=== PATIENT | male | born 1950 | race Caucasian/White ===

== ENCOUNTER → 2017-04-28 | Outpatient (CLI) | payer MEDICARE, MEDICAID ==
[2017-04-28 12:55] LABS: MEAN CORPUSCULAR HEMOGLOBIN 31.9 pg (27.0-33.0); MEAN CORPUSCULAR HGB CONC 34.3 g/dl (32.0-36.5); RED CELL DISTRIBUTION WIDTH 13.7 % (11.5-14.5); WHITE BLOOD COUNT 5.1 K/mm3 (4.0-10.0)
[2017-04-28 14:49] LABS: ALBUMIN 3.5 GM/DL (3.2-5.2); ALBUMIN/GLOBULIN RATIO 0.95 (1.00-1.93); ALKALINE PHOSPHATASE 65 U/L (45-117); ALT/SGPT 24 U/L (12-78); ANION GAP 5 MEQ/L (8-16); AST/SGOT 12 U/L (15-37); BILIRUBIN,TOTAL 0.5 MG/DL (0.2-1.0); BLOOD UREA NITROGEN 13 MG/DL (7-18); CALCIUM LEVEL 8.9 MG/DL (8.8-10.2); CARBON DIOXIDE LEVEL 32 MEQ/L (21-32); CHLORIDE LEVEL 106 MEQ/L (98-107); CHOLESTEROL LEVEL 144 MG/DL (<200); CREATININE FOR GFR 0.84 MG/DL (0.70-1.30); GLOMERULAR FILTRATION RATE > 60.0 (>49); GLUCOSE, FASTING 91 MG/DL (80-110); POTASSIUM SERUM 4.5 MEQ/L (3.5-5.1); SODIUM LEVEL 143 MEQ/L (136-145); TOTAL PROTEIN 7.2 GM/DL (6.4-8.2); TRIGLYCERIDES LEVEL 82 MG/DL (<150)
== END ==
LOC: M WUC 09:04
PROVIDERS: ATTEND Nurse Practitioner Family
DX: E78.5 Hyperlipidemia, unspecified (principal); E03.8 Other specified hypothyroidism; N40.0 Benign prostatic hyperplasia without lower urinary tract symptoms
CPT/HCPCS: 36415; 80053; 80061; 84443; 85027; G0103

== ENCOUNTER → 2017-05-12 | Outpatient (CLI) | payer MEDICARE, MEDICAID ==
[2017-05-12 18:50] LABS: ANION GAP 7 MEQ/L (8-16); BLOOD UREA NITROGEN 8 MG/DL (7-18); CALCIUM LEVEL 8.7 MG/DL (8.8-10.2); CARBON DIOXIDE LEVEL 29 MEQ/L (21-32); CHLORIDE LEVEL 107 MEQ/L (98-107); CREATININE FOR GFR 0.74 MG/DL (0.70-1.30); GLOMERULAR FILTRATION RATE > 60.0 (>49); GLUCOSE, FASTING 89 MG/DL (80-110); POTASSIUM SERUM 4.2 MEQ/L (3.5-5.1); SODIUM LEVEL 143 MEQ/L (136-145)
== END ==
LOC: M SMT 14:21
PROVIDERS: ATTEND Nurse Practitioner Women's Health
DX: R97.20 Elevated prostate specific antigen [PSA] (principal); R35.0 Frequency of micturition; N39.41 Urge incontinence
CPT/HCPCS: 36415; 80048; 81001; 87086; G0463

== ENCOUNTER → 2017-05-27 | Outpatient (CLI) | payer MEDICARE, MEDICAID ==
--- NOTE | 2017-05-27 16:00 | REP ---
Multi parametric prostate MRI without and with IV gadolinium: History: Elevated PSA. Comparisons: Comparison CT study of the pelvis is from 07/18/2016. TECHNIQUE: Using a phased array surface coil, small field of view imaging was acquired using T2-weighted scans in the axial, coronal, and sagittal imaging planes. Small field of view diffusion-weighted sequences are acquired. Small field of view axial T1-weighted scans are acquired dynamically after the intravenous administration of 17 mL of ProHance. Prostate MRI findings: There is no evidence of bony metastatic disease or adenopathy. BPH changes are noted in the enlarged prostate. Glandular dimensions are 5.8 x 5.0 x 6.5 cm. Calculated glandular volume is 83.6 mL. Three targets are identified to representing regions of interest in consideration of MR ultrasound fusion directed biopsy. Lesion #1 is a 1.4 x 0.5 x 1.0 cm, 0.5 mL area of low T2 signal intensity and type 3 enhancement in the midline mid anterior stroma. Clinically significant cancer is likely to be present. Lesion #2 is in the left base transition zone, 1.09 mL in volume, 1.8 x 1.0 x 1.0 cm. This shows a discrete homogeneous low signal intensity focus confined to the prostate on T2-weighted scans with no reduction in ADC and a type 3 enhancement curve. Clinically significant cancer is likely. Lesion #3 is in the right base transition zone. A 0.7 ml volume measuring 1.5 x 0.9 x 1.0 cm demonstrates an intermediate to decreased T2 signal intensity pattern, no reduction in ADC on diffusion, and a type 3 enhancement curve. Clinically significant cancer is equivocal. Impression: Multi parametric MRI study of the prostate with three potential lesions identified and submitted for consideration of ultrasound MR fusion directed needle biopsy. No evidence of metastatic disease or extra prostatic disease. Signed by Jorden Christy MD 05/27/2017 06:37 P
== END ==
LOC: M RAD 12:51
PROVIDERS: ATTEND Otolaryngology
DX: R97.20 Elevated prostate specific antigen [PSA] (principal)
CPT/HCPCS: 72197; A9576

== ENCOUNTER → 2017-06-03 | Outpatient (REF) | payer MEDICARE, MEDICAID | LOC: M SMT 13:18 | PROVIDERS: ATTEND Nurse Practitioner Women's Health | DX: R10.30 Lower abdominal pain, unspecified (principal) | CPT/HCPCS: 81001; 87086; G0463 ==

== ENCOUNTER → 2017-07-17 | Outpatient (CLI) | payer MEDICARE, MEDICAID ==
[2017-07-17 13:53] LABS: MEAN CORPUSCULAR HEMOGLOBIN 30.9 pg (27.0-33.0); MEAN CORPUSCULAR HGB CONC 33.6 g/dl (32.0-36.5); MEAN CORPUSCULAR VOLUME 92.2 fl (80.0-96.0); PLATELET COUNT, AUTOMATED 118 10^3/uL (150-450); WHITE BLOOD COUNT 6.1 10^3/uL (4.0-10.0)
[2017-07-17 14:17] LABS: ALBUMIN 3.9 GM/DL (3.2-5.2); ALKALINE PHOSPHATASE 67 U/L (45-117); ALT/SGPT 23 U/L (12-78); ANION GAP 4 MEQ/L (8-16); AST/SGOT 12 U/L (15-37); BILIRUBIN,TOTAL 0.4 MG/DL (0.2-1.0); BLOOD UREA NITROGEN 11 MG/DL (7-18); CALCIUM LEVEL 8.8 MG/DL (8.8-10.2); CARBON DIOXIDE LEVEL 32 MEQ/L (21-32); CHLORIDE LEVEL 103 MEQ/L (98-107); CREATININE FOR GFR 0.97 MG/DL (0.70-1.30); GLOMERULAR FILTRATION RATE > 60.0 (>49); GLUCOSE, FASTING 91 MG/DL (80-110); SODIUM LEVEL 139 MEQ/L (136-145); TOTAL PROTEIN 7.8 GM/DL (6.4-8.2)
--- NOTE | 2017-07-17 14:59 | REP ---
PA and lateral chest: Comparison is 03/10/2006. Lung handy are clear. Cardiac size upper normal. Cathy and mediastinum are unremarkable. There is a focal parenchymal scar in the left costophrenic angle, unchanged. There is thoracic scoliosis convex right. There is chronic deformity of the left humeral head. There is an old right clavicle fracture. Impression: There are no acute cardiopulmonary findings. Signed by Klaus Montoya MD 07/17/2017 02:51 P
== END ==
LOC: M WUC 11:47
PROVIDERS: ATTEND Nurse Practitioner Family
DX: R50.9 Fever, unspecified (principal); I10 Essential (primary) hypertension; E03.8 Other specified hypothyroidism

== ENCOUNTER → 2017-08-07 | Outpatient (CLI) | payer MEDICARE, MEDICAID ==
[~2017-08-07] MED LIST: CALC600T57 PO; CLAR10CA3 PO; DITR1TAB PO; FLOM5CAP PO; LEVO150T7 PO; PERP2TAB16 PO; PERP4TA PO; PERP8TAB25 PO; SERT-138 PO; SIMV10TA2 PO; TRAM50TA2 PO
--- NOTE | 2017-08-07 15:03 | REP ---
TRANSRECTAL PROSTATE ULTRASOUND WITH ULTRASOUND GUIDANCE FOR PROSTATE BIOPSY: Real-time sonographic evaluation of prostate performed utilizing transrectal probe. Size of the gland is 5.9 x 5.3 x 6.2 cm, total volume approximately 103 mL. Ultrasound guidance was provide for Dr. Jamison who performed ultrasound-guided biopsy of the prostate. Signed by Klaus Ashley MD 08/07/2017 03:50 P
== END ==
LOC: M SMT PRO 08:36
PROVIDERS: ATTEND Urology
DX: R97.20 Elevated prostate specific antigen [PSA] (principal); Z88.0 Allergy status to penicillin; Z88.2 Allergy status to sulfonamides
CPT/HCPCS: 55700; 76872; 76942; G0416

== ENCOUNTER 2017-08-17 11:23 | Day surgery (SDC) | payer MEDICARE, MEDICAID ==
[~2017-08-17] VITALS: Ht 185.4 cm; Wt 87.1 kg
[~2017-08-17 11:23] MED LIST changes: +PROPOFOL 200 MG/20 ML VIAL As Ordered ONE
[2017-08-17] MEDS ORDERED: NS 1,000 ML IV ONE (11:45)
--- NOTE | 2017-08-17 13:05 | ROOR ---
Patient Name: Gabriel Spangler Procedure Date: 08/17/2017 12:36 PM Date of : 1950 Age: 67 Room: [facility] Gender: Male Note Status: Finalized Procedure: Total Colonoscopy to Cecum + Biopsy Polypectomy Indications: High risk colon cancer surveillance: Personal history of colonic polyps Providers: Emir Barajas MD Referring MD: RACHEL BLEVINS Requesting Provider: Medicines: Monitored Anesthesia Care Complications: No immediate complications. Procedure: Pre-Anesthesia Assessment: - The heart rate, respiratory rate, oxygen saturations, blood pressure, adequacy of pulmonary ventilation, and response to care were monitored throughout the procedure. The Colonoscope was introduced through the anus and advanced to the cecum, identified by appendiceal orifice and ileocecal valve. The colonoscopy was performed without difficulty. The patient tolerated the procedure well. The quality of the bowel preparation was good. Findings: The perianal and digital rectal examinations were normal. Non-bleeding internal hemorrhoids were found during retroflexion. The hemorrhoids were Grade I (internal hemorrhoids that do not prolapse). Scattered small-mouthed diverticula were found in the recto-sigmoid colon, sigmoid colon and descending colon. A small polyp was found in the cecum. The polyp was sessile. The polyp was removed with a jumbo cold forceps. Resection and retrieval were complete. The exam was otherwise without abnormality on direct and retroflexion views. Impression: - Non-bleeding internal hemorrhoids. - Diverticulosis in the recto-sigmoid colon, in the sigmoid colon and in the descending colon. - One small polyp in the cecum, removed with a jumbo cold forceps. Resected and retrieved. - The examination was otherwise normal on direct and retroflexion views. - The exam was otherwise normal to the cecum. Recommendation: - Patient has a contact number available for emergencies. The signs and symptoms of potential delayed complications were discussed with the patient. Return to normal activities tomorrow. Written discharge instructions were provided to the patient. - High fiber diet. - Discharge patient to home. - Continue present medications. - Await pathology results. - Telephone GI clinic for pathology results in 1 week. - Repeat colonoscopy in 5 years for surveillance based on pathology results. - Return to referring physician. - The findings and recommendations were discussed with the patient's family. Emir Barajas MD Emir Barajas MD 08/17/2017 1:05:27 PM This report has been signed electronically. Number of Addenda: 0 Note Initiated On: 08/17/2017 12:36 PM Estimated Blood Loss: Estimated blood loss: none.
[2017-08-17 13:40] VITALS: BP 146/93
== END 2017-08-17 13:44 | disposition home or self-care (01) ==
LOC: M OPP 11:23
PROVIDERS: ATTEND Internal Medicine Gastroenterology
DX: Z12.11 Encounter for screening for malignant neoplasm of colon (principal); K64.0 First degree hemorrhoids; K57.30 Diverticulosis of large intestine without perforation or abscess without bleeding; D12.0 Benign neoplasm of cecum; Z86.010 Personal history of colon polyps; E03.9 Hypothyroidism, unspecified; K21.9 Gastro-esophageal reflux disease without esophagitis; Z22.8 Carrier of other infectious diseases; F79 Unspecified intellectual disabilities; F20.9 Schizophrenia, unspecified; F31.9 Bipolar disorder, unspecified; G24.01 Drug induced subacute dyskinesia; N40.0 Benign prostatic hyperplasia without lower urinary tract symptoms; Z79.82 Long term (current) use of aspirin; Z79.899 Other long term (current) drug therapy; Z91.048 Other nonmedicinal substance allergy status; J30.2 Other seasonal allergic rhinitis; Z88.0 Allergy status to penicillin; Z88.2 Allergy status to sulfonamides

== ENCOUNTER → 2017-09-11 | Outpatient (CLI) | payer MEDICARE, MEDICAID ==
[~2017-09-11] MED LIST changes: -PROPOFOL 200 MG/20 ML VIAL As Ordered ONE
--- NOTE | 2017-09-11 18:40 | REP ---
Clinical: Contusion. Technique: AP, lateral, bilateral oblique views of the left hand. Comparison: 04/22/2016. Findings: Age-related arthritic degenerative changes are appreciated. No acute fracture dislocation. No subcutaneous emphysema or radiodense foreign body. Impression: Age-related degenerative changes. No acute fracture or dislocation. Signed by Santosh Gutierrez MD 09/11/2017 06:31 P
== END ==
LOC: M WUC 18:19
PROVIDERS: ATTEND Physician Assistant
DX: S60.222A Contusion of left hand, initial encounter (principal); X58.XXXA Exposure to other specified factors, initial encounter; Y92.89 Other specified places as the place of occurrence of the external cause; Y93.89 Activity, other specified; Y99.8 Other external cause status

== ENCOUNTER → 2017-10-06 | Outpatient (CLI) | payer MEDICARE, MEDICAID | LOC: M WHC 10:40 | DX: Z13.820 Encounter for screening for osteoporosis (principal); M89.9 Disorder of bone, unspecified | CPT/HCPCS: 77080 ==

== ENCOUNTER → 2017-11-16 | Outpatient (CLI) | payer MEDICARE, MEDICAID ==
[2017-11-16 17:44] LABS: PROSTATIC SPECIFIC AG MONITOR 8.58 NG/ML (< 4.0)
== END ==
LOC: M WUC 11:59
DX: R97.20 Elevated prostate specific antigen [PSA] (principal)
CPT/HCPCS: 84153

== ENCOUNTER → 2017-12-17 | Outpatient (CLI) | payer MEDICARE, MEDICAID ==
[2017-12-17 10:30] LABS: HEMATOCRIT 40.5 % (42.0-52.0); HEMOGLOBIN 13.5 g/dl (14.0-18.0); MEAN CORPUSCULAR HEMOGLOBIN 30.8 pg (27.0-33.0); MEAN CORPUSCULAR HGB CONC 33.3 g/dl (32.0-36.5); MEAN CORPUSCULAR VOLUME 92.5 fl (80.0-96.0); PLATELET COUNT, AUTOMATED 124 10^3/uL (150-450); RED BLOOD COUNT 4.38 10^6/uL (4.30-6.10); RED CELL DISTRIBUTION WIDTH 12.9 % (11.5-14.5); WHITE BLOOD COUNT 4.6 10^3/uL (4.0-10.0)
[2017-12-17 10:40] LABS: ALBUMIN 3.5 GM/DL (3.2-5.2); ALBUMIN/GLOBULIN RATIO 0.97 (1.00-1.93); ALKALINE PHOSPHATASE 58 U/L (45-117); ALT/SGPT 20 U/L (12-78); ANION GAP 4 MEQ/L (8-16); AST/SGOT 14 U/L (7-37); BILIRUBIN,TOTAL 0.4 MG/DL (0.2-1.0); BLOOD UREA NITROGEN 14 MG/DL (7-18); CALCIUM LEVEL 8.6 MG/DL (8.8-10.2); CARBON DIOXIDE LEVEL 31 MEQ/L (21-32); CHLORIDE LEVEL 108 MEQ/L (98-107); CHOLESTEROL LEVEL 149 MG/DL (<200); CREATININE FOR GFR 0.89 MG/DL (0.70-1.30); GLOMERULAR FILTRATION RATE > 60.0 (>49); GLUCOSE, FASTING 93 MG/DL (70-100); HDL CHOLESTEROL 47 MG/DL (>40); LDL CHOLESTEROL 84.2 MG/DL (<100); NON-HDL-C 102 MG/DL; POTASSIUM SERUM 4.5 MEQ/L (3.5-5.1); SODIUM LEVEL 143 MEQ/L (136-145); TOTAL PROTEIN 7.1 GM/DL (6.4-8.2); TRIGLYCERIDES LEVEL 89 MG/DL (<150)
== END ==
LOC: M WUC 08:31
DX: E78.2 Mixed hyperlipidemia (principal)
CPT/HCPCS: 80053

== ENCOUNTER → 2018-01-06 | Outpatient (CLI) | payer MEDICARE, MEDICAID | LOC: M WUC 13:01 | DX: M19.072 Primary osteoarthritis, left ankle and foot (principal) | CPT/HCPCS: 73610 ==

== ENCOUNTER → 2018-03-03 | Outpatient (CLI) | payer MEDICARE, MEDICAID | LOC: M WUC 08:39 | DX: E03.9 Hypothyroidism, unspecified (principal) | CPT/HCPCS: 84443 ==

== ENCOUNTER → 2018-05-27 | Outpatient (CLI) | payer MEDICARE, MEDICAID ==
[2018-05-27 09:37] LABS: HEMOGLOBIN 13.9 g/dl (13.5-17.5); MEAN CORPUSCULAR HEMOGLOBIN 31.4 pg (27.0-33.0); MEAN CORPUSCULAR HGB CONC 33.1 g/dl (32.0-36.5); PLATELET COUNT, AUTOMATED 105 10^3/uL (150-450); RED BLOOD COUNT 4.42 10^6/uL (4.30-6.10); RED CELL DISTRIBUTION WIDTH 13.1 % (11.5-14.5)
[2018-05-27 10:35] LABS: ALBUMIN 3.4 GM/DL (3.2-5.2); ALBUMIN/GLOBULIN RATIO 0.87 (1.00-1.93); ALKALINE PHOSPHATASE 53 U/L (45-117); ALT/SGPT 21 U/L (12-78); ANION GAP 7 MEQ/L (8-16); AST/SGOT 15 U/L (7-37); BILIRUBIN,TOTAL 0.6 MG/DL (0.2-1.0); BLOOD UREA NITROGEN 17 MG/DL (7-18); CALCIUM LEVEL 8.6 MG/DL (8.8-10.2); CARBON DIOXIDE LEVEL 28 MEQ/L (21-32); CHLORIDE LEVEL 107 MEQ/L (98-107); CHOLESTEROL LEVEL 139 MG/DL (<200); CREATININE FOR GFR 0.92 MG/DL (0.70-1.30); GLOMERULAR FILTRATION RATE > 60.0 (>49); GLUCOSE, FASTING 85 MG/DL (70-100); HDL CHOLESTEROL 41 MG/DL (>40); LDL CHOLESTEROL 77.2 MG/DL (<100); NON-HDL-C 98 MG/DL; POTASSIUM SERUM 4.4 MEQ/L (3.5-5.1); PROSTATIC SPECIFIC AG MONITOR 8.08 NG/ML (< 4.0); SODIUM LEVEL 142 MEQ/L (136-145); TOTAL PROTEIN 7.3 GM/DL (6.4-8.2); TRIGLYCERIDES LEVEL 104 MG/DL (<150)
== END ==
LOC: M WUC 08:16
DX: N40.0 Benign prostatic hyperplasia without lower urinary tract symptoms (principal); E03.8 Other specified hypothyroidism
CPT/HCPCS: 84443

== ENCOUNTER → 2018-11-30 | Outpatient (CLI) | payer MEDICARE, MEDICAID ==
[~2018-11-30] MED LIST changes: +FLOM0.4C39 PO; -FLOM5CAP PO
== END ==
LOC: M LAB 06:49
PROVIDERS: ATTEND Nurse Practitioner Women's Health
DX: R97.20 Elevated prostate specific antigen [PSA] (principal)

== ENCOUNTER → 2019-03-04 | Outpatient (CLI) | payer MEDICARE, MEDICAID ==
--- NOTE | 2019-03-04 11:09 | REP ---
Left shoulder series: Three views. History: Pain. Comparison is made with chest x-ray films from July 17, 2017. Findings: There is old post-traumatic deformity in the region of the surgical neck of the left humerus. There is severe glenohumeral osteoarthritis with exuberant osteophyte formation along the inferior aspect of the humeral head and with reactive sclerosis. These findings are essentially unchanged from the July 17, 2017 exam. No subluxation is appreciated. The AC joint is unremarkable with mild spurring. Impression: Old healed surgical neck fracture proximal humerus. Severe glenohumeral osteoarthritis with spur formation and sclerosis. Minimal AC joint spurring. No acute abnormality. Electronically Signed by Jorden Christy MD 03/04/2019 03:08 P
== END ==
LOC: M WUC 09:47
PROVIDERS: ATTEND Nurse Practitioner Family
DX: S40.921D Unspecified superficial injury of right upper arm, subsequent encounter (principal); X58.XXXD Exposure to other specified factors, subsequent encounter; M25.722 Osteophyte, left elbow; M19.022 Primary osteoarthritis, left elbow

== ENCOUNTER → 2019-04-18 | Outpatient (CLI) | payer MEDICARE, MEDICAID | LOC: M LAB 07:35 | PROVIDERS: ATTEND Internal Medicine Gastroenterology | DX: R97.20 Elevated prostate specific antigen [PSA] (principal) ==

== ENCOUNTER → 2019-04-18 | Outpatient (CLI) | payer MEDICARE, MEDICAID ==
[2019-04-18 08:25] LABS: HEMATOCRIT 42.8 % (42.0-52.0); HEMOGLOBIN 14.3 g/dl (13.5-17.5); MEAN CORPUSCULAR HEMOGLOBIN 32.5 pg (27.0-33.0); MEAN CORPUSCULAR HGB CONC 33.4 g/dl (32.0-36.5); MEAN CORPUSCULAR VOLUME 97.3 fl (80.0-96.0); PLATELET COUNT, AUTOMATED 110 10^3/uL (150-450); WHITE BLOOD COUNT 4.3 10^3/uL (4.0-10.0)
[2019-04-18 08:56] LABS: ALBUMIN 3.6 GM/DL (3.2-5.2); ALT/SGPT 19 U/L (12-78); BILIRUBIN,TOTAL 0.4 MG/DL (0.2-1.0); BLOOD UREA NITROGEN 18 MG/DL (7-18); CALCIUM LEVEL 8.6 MG/DL (8.8-10.2); CARBON DIOXIDE LEVEL 30 MEQ/L (21-32); CHLORIDE LEVEL 108 MEQ/L (98-107); CHOLESTEROL LEVEL 146 MG/DL (<200); CHOLESTEROL RISK RATIO 3.041 (<5); CREATININE FOR GFR 0.89 MG/DL (0.70-1.30); GLOMERULAR FILTRATION RATE > 60.0 (>49); GLUCOSE, FASTING 94 MG/DL (70-100); HDL CHOLESTEROL 48 MG/DL (>40); LDL CHOLESTEROL 79 MG/DL (<100); NON-HDL-C 98 MG/DL; PROSTATIC SPECIFIC AG MONITOR 9.17 NG/ML (< 4.00); SODIUM LEVEL 142 MEQ/L (136-145); TOTAL PROTEIN 7.4 GM/DL (6.4-8.2); TRIGLYCERIDES LEVEL 93 MG/DL (<150)
== END ==
LOC: M LAB 07:30
PROVIDERS: ATTEND Nurse Practitioner Family
DX: E03.8 Other specified hypothyroidism (principal); N40.0 Benign prostatic hyperplasia without lower urinary tract symptoms; R97.20 Elevated prostate specific antigen [PSA]

== ENCOUNTER → 2019-08-17 | Outpatient (CLI) | payer MEDICARE, MEDICAID ==
[~2019-08-17] MED LIST changes: -SIMV10TA2 PO; +SIMV10TA21 PO
[2019-08-23 14:11] LABS: PSA FREE 0.7 ng/mL; PSA TOTAL 8.8 ng/mL (0.0-4.0)
== END ==
LOC: M WUC 12:23
PROVIDERS: ATTEND Urology
DX: N40.0 Benign prostatic hyperplasia without lower urinary tract symptoms (principal); R97.20 Elevated prostate specific antigen [PSA]

== ENCOUNTER 2019-10-11 09:44 | Emergency (ER) | payer MEDICARE, MEDICAID ==
[~2019-10-11] VITALS: Ht 182.9 cm; Wt 84.1 kg
[~2019-10-11 09:44] MED LIST changes: +ASPI81TA85 PO; +FINA5TAB2 PO; +TRAZ-252 PO; +ZOLO100T PO
[2019-10-11 13:02] LABS: BASO % 0.2 % (0.0-1.0); HEMATOCRIT 37.9 % (42.0-52.0); HEMOGLOBIN 12.4 g/dl (13.5-17.5); LYMPH # 0.7 10^3/uL (1.5-5.0); MEAN CORPUSCULAR HEMOGLOBIN 31.8 pg (27.0-33.0); MEAN CORPUSCULAR HGB CONC 32.7 g/dl (32.0-36.5); MEAN CORPUSCULAR VOLUME 97.2 fl (80.0-96.0); MONO # 0.4 10^3/uL (0.0-0.8); MONO % 5.9 % (0.0-5.0); NEUTROPHILS # 5.5 10^3/uL (1.5-8.5); NEUTROPHILS % 82.6 % (36.0-66.0); PLATELET COUNT, AUTOMATED 132 10^3/uL (150-450); WHITE BLOOD COUNT 6.6 10^3/uL (4.0-10.0)
[2019-10-11 13:16] LABS: INR 1.25; PROTHROMBIN TIME 15.4 SECONDS (11.8-14.0)
[2019-10-11 13:17] LABS: PARTIAL THROMBOPLASTIN TIME 25.9 SECONDS (25.0-38.4)
[2019-10-11] MEDS ORDERED: OXYMETAZOLINE NASAL SPRAY (AFRIN) STA (14:26)
[2019-10-11] MEDS ORDERED: SILVER NITRATE APPLICATOR TOP STA (15:19)
[2019-10-11 16:31] LABS: BASO % 0.2 % (0.0-1.0); HEMATOCRIT 38.2 % (42.0-52.0); HEMOGLOBIN 12.4 g/dl (13.5-17.5); LYMPH # 1.3 10^3/uL (1.5-5.0); LYMPH % 15.3 % (24.0-44.0); MEAN CORPUSCULAR HEMOGLOBIN 31.8 pg (27.0-33.0); MEAN CORPUSCULAR HGB CONC 32.5 g/dl (32.0-36.5); MEAN CORPUSCULAR VOLUME 97.9 fl (80.0-96.0); MONO # 0.6 10^3/uL (0.0-0.8); MONO % 7.3 % (0.0-5.0); NEUTROPHILS # 6.3 10^3/uL (1.5-8.5); PLATELET COUNT, AUTOMATED 145 10^3/uL (150-450); WHITE BLOOD COUNT 8.2 10^3/uL (4.0-10.0)
[2019-10-11] MEDS ORDERED: LIDOCAINE 2% MDV 20 ML VIAL SC ONE (16:45)
[2019-10-11 17:56] VITALS: BP 134/92
--- NOTE | 2019-10-12 14:55 | CR.PDOC ---
General Surgery Consultation Date of Consultation 10/11/19 History and Physical CONSULT REPORT FOR: ER consulting physician REASON FOR CONSULTATION: Epistaxis HISTORY OF PRESENT ILLNESS: This is a 69-year-old male with history of developmental delay and epistaxis from the right side. He has bled intermittently for a few days this week and this morning bled from the right side for 2 straight hours. A Rhino Rocket was placed in the right nostril by the ER staff. However, the patient has started bleeding around it. Once again he has no history of previous bouts of epistaxis. No history of cautery or packing and no blood thinners. He has no family history of bleeding or clotting disorders. No history of high blood pressure PAST MEDICAL HISTORY: 1. Noncontributory. PAST SURGICAL HISTORY: INCLUDES: 1. Noncontributory. PREVIOUS ANESTHESIA REACTIONS: Noncontributory ALLERGIES: Please see below. FAMILY HISTORY: Noncontributory. HOME MEDICATIONS: Please see below. REVIEW OF SYSTEMS: A comprehensive 12 point review of systems was conducted and was negative save for what was discussed in the HPI FOCUSED PHYSICAL EXAMINATION: VITALS SIGNS: Please see below. GENERAL APPEARANCE: Patient is alert and oriented 3, in no acute distress. FOCUSED HEENT EXAM: Ears: Bilateral external auditory canals are clear and patent. Normal appearance of the bilateral tympanic membranes with no evidence of middle ear effusion Nose: A Rhino Rocket was removed from the right nare and a prominent vessel was identified in the anterior inferior right septum adjacent to the nasal floor. There is no active bleeding at this time. No other prominent vessels identified. The left. There is clear and patent with normal appearance of the inferior tu rbinate. Oral cavity normal appearance of the gingiva and dentition. Tongue is freely mobile. Floor of mouth is soft, normal appearance of the hard palate, soft palate, posterior wall of the oropharynx. Tonsils are 1+. There is no active bleeding in the oropharynx. Neck: The neck is soft and supple with no evidence of lymphadenopathy. PROCEDURE NOTE: NASAL CAUTERY. Consent was obtained from the patient and his caregiver, the right near was anesthetized using a cotton ball which had been soaked in Afrin and lidocaine. Once this cotton ball was removed. The right naris examined with a nasal spe culum and a prominent vessel was identified. It was cauterized using a silver nitrate stick and Surgicel dressing was placed. Right afterwards. The patient tolerated the procedure very well LABORATORY DATA: Please see below. IMPRESSION AND PLAN: 1. Epistaxis. Epistaxis, controlled today. Instructions regarding controlling epistaxis in the future were given. Follow-up as needed. Thank you for this consult. Vital Signs Vital Signs Date Time Temp Pulse Resp B/P (MAP) Pulse Ox O2 Delivery O2 Flow Rate FiO2 10/11/19 17:56 98.3 123 20 134/92 (106) 96 Room Air Laboratory Data Labs 24H Laboratory Tests 2 10/11/19 16:16: Immature Granulocyte % (Auto) 0.2, Neutrophils (%) (Auto) 77.0H, Lymphocytes (%) (Auto) 15.3L, Monocytes (%) (Auto) 7.3H, Eosinophils (%) (Auto) 0.0, Basophils (%) (Auto) 0.2, Neutrophils # (Auto) 6.3, Lymphocytes # (Auto) 1.3L, Monocytes # (Auto) 0.6, Eosinophils # (Auto) 0.0, Basophils # (Auto) 0.0, Nucleated Red Blood Cells % (auto) 0.0 CBC/BMP Laboratory Tests 10/11/19 16:16 Home Medications Scheduled Aspirin (Aspir 81) 81 Mg Tablet.dr, 81 MG PO DAILY for pain, (Reported) Calcium Carbonate/Vitamin D3 (Calcium 600-Vit D3 200 Tablet) 1 Tab Tab, 1 TAB PO TID, (Reported) 600/400 Finasteride (Finasteride) 5 Mg Tablet, 5 MG PO DAILY, (Reported) Levothyroxine Sodium (Levothyroxine Sodium) 150 Mcg Tab, 150 MCG PO DAILY, (Reported) Loratadine (Claritin) 10 Mg Cap, 10 MG PO DAILY, (Reported) Oxybutynin Chloride (Ditropan Xl) 10 Mg Tab, 10 MG PO QHS, (Reported) Perphenazine (Perphenazine) 2 Mg Tab, 2 MG PO QAM, (Reported) Perphenazine (Perphenazine) 4 Mg Tab, 4 MG PO QAM, (Reported) Perphenazine (Perphenazine) 8 Mg Tab, 8 MG PO QHS, (Reported) Sertraline HCl (Sertraline HCl) 100 Mg Tab, 100 MG PO QAM, (Reported) Sertraline Hcl (Zoloft) 100 Mg Tablet, 100 MG PO QPM, (Reported) Simvastatin (Simvastatin) 10 Mg Tab, 10 MG PO DAILY, (Reported) Tamsulosin HCl (Flomax) 0.4 Mg Cap, 0.4 MG PO QHS, (Reported) Trazodone HCl (Trazodone HCl) 50 Mg Tablet, 50 MG PO QHS, (Reported) Allergies Coded Allergies: Dust (Verified Allergy, Unknown, 08/07/17) POLLEN (Verified Allergy, Unknown, 08/07/17) Sulfa (Sulfonamide Antibiotics) (Verified Allergy, Unknown, 10/05/19) amoxicillin (Verified Allergy, Unknown, 10/05/19) MARIANA MENDOSA MD Oct 12, 2019 14:55
== END 2019-10-11 18:03 | disposition home or self-care (01) ==
LOC: M ED 09:44
DX: R04.0 Epistaxis (principal); Z86.2 Personal history of diseases of the blood and blood-forming organs and certain disorders involving the immune mechanism; H54.8 Legal blindness, as defined in USA; F63.81 Intermittent explosive disorder; F25.9 Schizoaffective disorder, unspecified; E78.5 Hyperlipidemia, unspecified; Z79.82 Long term (current) use of aspirin; Z79.899 Other long term (current) drug therapy; Z88.0 Allergy status to penicillin; Z88.2 Allergy status to sulfonamides; J30.1 Allergic rhinitis due to pollen; J30.89 Other allergic rhinitis

== ENCOUNTER 2019-10-17 20:13 | Emergency (ER) | payer MEDICARE, MEDICAID ==
[~2019-10-17] VITALS: Ht 188 cm; Wt 90.6 kg
[2019-10-18 01:50] VITALS: BP 147/83
== END 2019-10-18 01:52 | disposition home or self-care (01) ==
LOC: M ED 20:13
DX: R04.0 Epistaxis (principal); F20.9 Schizophrenia, unspecified; J30.1 Allergic rhinitis due to pollen; Z86.19 Personal history of other infectious and parasitic diseases; J30.89 Other allergic rhinitis; Z79.82 Long term (current) use of aspirin; Z79.899 Other long term (current) drug therapy; Z88.2 Allergy status to sulfonamides; Z88.0 Allergy status to penicillin

== ENCOUNTER → 2019-10-19 | Outpatient (CLI) | payer MEDICARE, MEDICAID ==
--- NOTE | 2019-10-19 08:02 | REP ---
Complete abdomen ultrasound for thrombocytopenia, splenomegaly/cirrhosis: There are no comparisons. There is no cholelithiasis, gallbladder wall thickening or pericholecystic fluid. The common biliary duct is upper normal diameter measuring 6.8 mm. The hepatic parenchyma is homogeneous and otherwise unremarkable. The hepatic margin does not appear lobulated. The pancreas is obscured by bowel gas. The spleen is normal size measuring 11.5 x 5.5 x 8.1 cm. The right kidney measures 11.0 x 5.0 x 6.0 cm and is normal size. Left kidney measures 11.9 x 5.2 x 6.2 cm and is of normal size. There is no hydronephrosis or renal calculus on the right or the left. There are no solid or cystic renal masses. There is no abdominal aortic aneurysm. The proximal aorta is obscured by bowel gas, mid aorta measures 1.8 cm in diameter and distal aorta measures 1.4 cm in diameter. The study is technically :s ultrasound acoustic windows are limited and because of patient body habitus. Impression: The hepatic parenchyma has a normal appearance. The hepatic margin does not appear loculated. The spleen is normal size. The pancreas is obscured by bowel gas. Electronically Signed by Klaus Montoya MD 10/19/2019 07:53 A
== END ==
LOC: M RAD 06:16
PROVIDERS: ATTEND Internal Medicine Hematology & Oncology
DX: D69.6 Thrombocytopenia, unspecified (principal); K74.60 Unspecified cirrhosis of liver

== ENCOUNTER → 2019-12-21 | Outpatient (REF) | payer MEDICARE, MEDICAID ==
[2019-12-21 13:43] LABS: BILIRUBIN,DIRECT 0.1 MG/DL (0.0-0.2); BILIRUBIN,TOTAL 0.4 MG/DL (0.2-1.0); CALCIUM LEVEL 8.8 MG/DL (8.8-10.2)
[2019-12-21 13:44] LABS: ALBUMIN 3.7 GM/DL (3.2-5.2); CHOLESTEROL RISK RATIO 2.86 (<5); FREE T3 2.5 PG/ML (2.2-4.0); FREE T4 1.44 NG/DL (0.76-1.46); THYROID STIMULATING HORMONE 1.89 uIU/ML (0.358-3.740); TOTAL PROTEIN 7.6 GM/DL (6.4-8.2)
[2019-12-21 13:52] LABS: TOTAL 25(OH) VITAMIN D 39.1 NG/ML (30.0-100.0)
== END ==
LOC: M LABDRAW1 09:10
PROVIDERS: ATTEND Family Medicine
DX: E78.2 Mixed hyperlipidemia (principal); E83.51 Hypocalcemia

== ENCOUNTER → 2020-02-29 | Outpatient (CLI) | payer MEDICARE, MEDICAID | LOC: M WUC 10:39 | PROVIDERS: ATTEND Urology | DX: R97.20 Elevated prostate specific antigen [PSA] (principal) ==

== ENCOUNTER → 2020-05-31 | Outpatient (CLI) | payer MEDICARE, MEDICAID ==
[~2020-05-31] MED LIST changes: -ASPI81TA85 PO; +ASPI81TA86 PO
[2020-06-03 06:37] LABS: PSA % FREE 8.4 % (.); PSA FREE 0.74 ng/mL; PSA TOTAL 8.8 ng/mL (0.0-4.0)
== END ==
LOC: M LAB 07:45
PROVIDERS: ATTEND Urology
DX: R97.20 Elevated prostate specific antigen [PSA] (principal)

== ENCOUNTER → 2020-06-01 | Outpatient (CLI) | payer MEDICARE, MEDICAID ==
--- NOTE | 2020-06-14 15:50 | DEXA ---
AP SPINE L1 - L4 1.283 0.7 0.9 LT FEMUR TOTAL 0.858 -1.2 -1.0 LT NECK 0.868 -1.2 -0.3 RT FEMUR TOTAL 0.885 -1.0 -0.8 RT NECK 0.820 -1.6 -0.7 TOTAL BODY TOTAL OTHER COMMENTS: Normal bone densitometry of the spine. There is low bone density of the hips. Density of the spine has decreased 0.5% since 10/06/2017. The density of the left hip has decreased 0.6% since 10/06/2017. The density of the right hip has increased 3.0% since 10/06/2017. FOLLOW-UP: Recommendation for the next bone density exam: 2 years. EDMUNDO
== END ==
LOC: M WHC 10:02
PROVIDERS: ATTEND Family Medicine
DX: M85.851 Other specified disorders of bone density and structure, right thigh (principal); M85.852 Other specified disorders of bone density and structure, left thigh

== ENCOUNTER → 2020-12-19 | Outpatient (CLI) | payer MEDICARE, MEDICAID ==
[~2020-12-19] MED LIST changes: +ECOT81TA5 PO
[2020-12-19 13:25] LABS: FREE T3 2.1 PG/ML (2.2-4.0); FREE T4 1.12 NG/DL (0.76-1.46); THYROID STIMULATING HORMONE 3.95 uIU/ML (0.358-3.740)
--- NOTE | 2020-12-19 15:49 | REP ---
INDICATION: ABNORMAL WEIGHT LOSS- LABS FIRST. COMPARISON: 07/17/2017 PA and lateral chest. TECHNIQUE: Upright PA and lateral chest. FINDINGS: There are no lung masses or nodules. There are no infiltrates or pleural effusions. The lung handy are clear. Cardiac size is normal. The arlette and mediastinum are unchanged and unremarkable. The There is thoracic scoliosis convex right, unchanged. There is chronic deformity of the left humeral head ulna, likely from chronic osteoarthritis, unchanged. There is an old right clavicular fracture, unchanged. IMPRESSION: Essentially negative PA and lateral chest There are no lung masses, nodules, infiltrates or effusions. There are chronic skeletal changes as described. <Electronically signed by Klaus Montoya > 12/19/20 [id number]
== END ==
LOC: M LAB 12:13
PROVIDERS: ATTEND Family Medicine
DX: R63.4 Abnormal weight loss (principal)

== ENCOUNTER → 2021-01-24 | Outpatient (CLI) | payer MEDICARE, MEDICAID ==
[~2021-01-24] MED LIST changes: +SYNT25TA PO
== END ==
LOC: M LABSMTC 10:25
PROVIDERS: ATTEND Anesthesiology
DX: Z01.812 Encounter for preprocedural laboratory examination (principal); Z11.52 Encounter for screening for COVID-19

== ENCOUNTER 2021-02-06 08:19 | Emergency (ER) | payer MEDICARE, MEDICAID ==
[~2021-02-06] VITALS: Ht 188 cm; Wt 72.8 kg
[2021-02-06] MEDS ORDERED: LEVO150T7 (08:44)
--- NOTE | 2021-02-06 10:00 | REP ---
INDICATION: fall. COMPARISON: Comparison head CT study is from June 22, 2015.. TECHNIQUE: Helical scanning is acquired. 5 mm axial images were reformatted. Coronal MPR images were generated. FINDINGS: Digital preliminary senior policy associate radiograph is unremarkable. On bone window settings the bony calvarium is intact. There is no visible fracture. There is a fracture of the left maxillary sinus with blood and air in the left maxillary sinus. See maxillofacial CT report for further detail. The visualized paranasal sinuses are otherwise clear. No intraorbital hematoma is appreciated. No visible scalp hematoma. On soft tissue window settings, there is a [id number] amount of acute subarachnoid hemorrhage distributed in the sylvian fissures bilaterally. This extends superiorly to the subarachnoid space around the for posterior frontal and parietal lobes and there is some subarachnoid blood in the midline adjacent to the anterior falx again on both sides. No subdural or epidural hematoma is seen. No parenchymal hemorrhage is appreciated. Ashley-white differentiation pattern is otherwise intact. No evidence of infarct or mass. There is a small low-density area in the basal ganglia on the left which could be a lacunar infarct. This is a new finding from the 2015 study. Age indeterminate however. IMPRESSION: Acute subarachnoid hemorrhage noted distributed through the sylvian fissures extending into the posterior frontal and parietal lobes bilaterally and adjacent to the anterior falx. Nonlocalized. No parenchymal hemorrhage or subdural or epidural collection. Questionable lacunar infarct left basal ganglia age indeterminate. Left maxillary sinus fracture. Critical Findings: Acute subarachnoid hemorrhage. The critical information above was relayed directly by me by telephone to BRADLEY ORTIZ on 02/06/2021 at 9:57 am with readback verification. <Electronically signed by Jairo Christy > 02/06/21 0945
--- NOTE | 2021-02-06 10:03 | REP ---
INDICATION: fall. COMPARISON: None. TECHNIQUE: Helical scanning is acquired and overlapping 2 mm high resolution axial images were generated and reviewed at bone and soft tissue window settings. Coronal and sagittal multiplanar re-formations images are generated. FINDINGS: There is no evidence of cervical spine element fracture. No skull base fracture is seen. Cervical vertebral body heights are preserved. Alignment is normal. Facet joints are normally aligned bilaterally at each cervical level on multiplanar re-formations images. There is no evidence of intraspinal or paraspinal hematoma. No extra vertebral abnormality is seen. There are advanced degenerative spondylosis changes throughout the cervical spine with degenerative disc disease diffusely and moderate bilateral osteoarthritic facet disease. There is a mild levoconvex curve in the cervical spine on coronal multiplanar re-formation images. No skull base fracture or cervical spine element fracture is seen. The lung apices are clear.9 IMPRESSION: Advanced degenerative spondylosis changes. No traumatic abnormality.. <Electronically signed by Jairo Christy > 02/06/21 [id number]
[2021-02-06 10:06] LABS: BASO % 0.3 % (0.0-1.0); EOS % 0.3 % (0.0-3.0); HEMATOCRIT 41.1 % (42.0-52.0); HEMOGLOBIN 13.6 g/dl (13.5-17.5); LYMPH # 0.7 10^3/uL (1.5-5.0); LYMPH % 12.1 % (24.0-44.0); MEAN CORPUSCULAR HEMOGLOBIN 31.5 pg (27.0-33.0); MEAN CORPUSCULAR HGB CONC 33.1 g/dl (32.0-36.5); MEAN CORPUSCULAR VOLUME 95.1 fl (80.0-96.0); MONO # 0.4 10^3/uL (0.0-0.8); NEUTROPHILS # 4.7 10^3/uL (1.5-8.5); RED BLOOD COUNT 4.32 10^6/uL (4.30-6.10); WHITE BLOOD COUNT 5.8 10^3/uL (4.0-10.0)
--- NOTE | 2021-02-06 10:08 | REP ---
INDICATION: fall. COMPARISON: Comparison is made with images from CT study of the brain dated June 22, 2015.. TECHNIQUE: Helical scanning is acquired and 2 mm axial images re-formatted. Coronal MPR images are generated and reviewed. FINDINGS: There is an air-fluid level in the left maxillary sinus. There is a nondisplaced fracture of the lateral wall the left orbit. A comminuted fracture is seen involving the zygomaticomaxillary complex extending into the anterior wall, the posterolateral wall, and the superior wall of the left maxillary sinus. There is slight medial depression of the zygomaticomaxillary complex. The remainder of the zygomatic arch on the left is intact. The posterolateral wall of the left maxillary sinus shows slight displacement. The right zygomatic arch is intact. The right orbit and right maxillary sinus jacobs are intact. The other paranasal sinuses are clear. No skull base fracture is seen. No mandibular fracture is appreciated. The nasal bone and inferior maxillary spine are intact. IMPRESSION: Comminuted minimally depressed fracture of the zygomaticomaxillary complex on the left with anterior, superior, and posterolateral left maxillary sinus wall fractures. No intraorbital hematoma or extraocular muscle displacement is seen. The fracture does extend into the floor of the orbit and the lateral wall of the orbit on the left. <Electronically signed by Jairo Christy > 02/06/21 [id number]
--- NOTE | 2021-02-06 10:09 | REP ---
INDICATION: fall COMPARISON: 12/19/2020. TECHNIQUE: AP and lateral. FINDINGS: Lungs: Clear, no infiltrate. Heart: There is slight left ventricular prominence. Mediastinum: There is mild calcification of the thoracic aorta. The mediastinal silhouette is unchanged. Pleural angles: Unremarkable.. Bones and soft tissues: There is an old healed fracture of the proximal left humerus with severe arthritic change at the glenohumeral joint. There are old healed left rib fractures again noted. There mild degenerative changes of the spine without compression deformity. IMPRESSION: No acute pulmonary disease. <Electronically signed by Klaus Ashley > 02/06/21 [id number]
[2021-02-06] MEDS ORDERED: niCARdipine IV 40 MG in IV 1 EA IV SCH (10:20)
[2021-02-06 10:34] LABS: BLOOD UREA NITROGEN 16 MG/DL (7-18); CALCIUM LEVEL 8.9 MG/DL (8.8-10.2); CARBON DIOXIDE LEVEL 30 MEQ/L (21-32); CHLORIDE LEVEL 104 MEQ/L (98-107); CK-MB VALUE MASS 1.3 NG/ML (<3.6); CPK CREATINE PHOSPHOKINASE 57 U/L (39-308); GLOMERULAR FILTRATION RATE > 60.0 (>49); GLUCOSE, FASTING 149 MG/DL (70-100); MB/CK RELATIVE INDEX 2.28 (< OR =4); POTASSIUM SERUM 3.7 MEQ/L (3.5-5.1); SODIUM LEVEL 138 MEQ/L (136-145); TROPONIN I < 0.02 NG/ML (< 0.10)
[2021-02-06 10:38] LABS: INR 1.12; PARTIAL THROMBOPLASTIN TIME 23.9 SECONDS (24.2-38.5); PROTHROMBIN TIME 14.6 SECONDS (12.5-14.3)
[2021-02-06 10:42] LABS: PLATELET COUNT, AUTOMATED 96 10^3/uL (150-450)
[2021-02-06 10:54] VITALS: BP 136/70
--- NOTE | 2021-02-06 19:59 | ECGEPIP ---
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
== END 2021-02-06 11:15 | disposition short-term general hospital (02) ==
LOC: M ED 08:19
DX: S01.81XA Laceration without foreign body of other part of head, initial encounter (principal); S06.6X0A Traumatic subarachnoid hemorrhage without loss of consciousness, initial encounter; S02.40DA Maxillary fracture, left side, initial encounter for closed fracture; S02.40FA Zygomatic fracture, left side, initial encounter for closed fracture; W18.2XXA Fall in (into) shower or empty bathtub, initial encounter; Y92.192 Bathroom in other specified residential institution as the place of occurrence of the external cause; Y93.E1 Activity, personal bathing and showering; Y99.8 Other external cause status; H54.8 Legal blindness, as defined in USA; G24.01 Drug induced subacute dyskinesia; F20.9 Schizophrenia, unspecified; F79 Unspecified intellectual disabilities; E78.5 Hyperlipidemia, unspecified; Z79.890 Hormone replacement therapy; Z79.899 Other long term (current) drug therapy; Z91.048 Other nonmedicinal substance allergy status; Z88.2 Allergy status to sulfonamides; Z88.0 Allergy status to penicillin

== ENCOUNTER → 2021-03-26 | Outpatient (REF) | payer MEDICARE, MEDICAID ==
[~2021-03-26] MED LIST changes: +LEVO150T7
[2021-03-26 13:23] LABS: FREE T3 2.8 PG/ML (2.2-4.0); FREE T4 1.25 NG/DL (0.76-1.46); THYROID STIMULATING HORMONE 1.8 uIU/ML (0.358-3.740)
== END ==
LOC: M WUC 11:20
PROVIDERS: ATTEND Family Medicine
DX: E03.8 Other specified hypothyroidism (principal)

== ENCOUNTER → 2021-03-29 | Outpatient (REF) | payer MEDICARE, MEDICAID ==
[2021-03-29 22:15] LABS: FREE T3 2.8 PG/ML (2.2-4.0); FREE T4 1.27 NG/DL (0.76-1.46); THYROID STIMULATING HORMONE 1.42 uIU/ML (0.358-3.740)
== END ==
LOC: M LAB REF 21:32
PROVIDERS: ATTEND Family Medicine
DX: E03.8 Other specified hypothyroidism (principal)

== ENCOUNTER → 2021-05-31 | Outpatient (CLI) | payer MEDICARE, MEDICAID | LOC: M WUC 09:56 | PROVIDERS: ATTEND Nurse Practitioner Women's Health | DX: R97.20 Elevated prostate specific antigen [PSA] (principal) ==

== ENCOUNTER → 2021-07-10 | Outpatient (CLI) | payer MEDICARE, MEDICAID ==
--- NOTE | 2021-07-10 14:16 | REPVR ---
PROCEDURE INFORMATION: Exam: CT Head Without Contrast Exam date and time: 07/10/2021 1:21 PM Age: 71 years old Clinical indication: Condition or disease; Other: F/u head trauma TECHNIQUE: Imaging protocol: Computed tomography of the head without contrast. Radiation optimization: All CT scans at this facility use at least one of these dose optimization techniques: automated exposure control; mA and/or kV adjustment per patient size (includes targeted exams where dose is matched to clinical indication); or iterative reconstruction. COMPARISON: CT Head without contrast 02/06/2021 9:23 AM FINDINGS: Brain: I see no evidence of acute hemorrhage or acute territorial infarct. The acute hemorrhage identified on the most recent prior has resolved. Physiologic basal ganglia calcifications. Cerebral ventricles: No ventriculomegaly. Paranasal sinuses: Visualized sinuses are unremarkable. No fluid levels. Mastoid air cells: Visualized mastoid air cells are well aerated. Bones/joints: Unremarkable. No acute fracture. Soft tissues: Unremarkable. IMPRESSION: No acute intracranial abnormality. Interval resolution of the acute hemorrhage seen on the prior. Electronically signed by: Dontrell Montgomery On 07/10/2021 14:16:14 PM
== END ==
LOC: M RAD 13:00
PROVIDERS: ATTEND Family Medicine
DX: S06.6X0D Traumatic subarachnoid hemorrhage without loss of consciousness, subsequent encounter (principal); Y92.9 Unspecified place or not applicable; Y93.9 Activity, unspecified; Y99.9 Unspecified external cause status

== ENCOUNTER → 2021-08-01 | Outpatient (CLI) | payer MEDICARE, MEDICAID | LOC: M WHC 10:42 | PROVIDERS: ATTEND Family Medicine | DX: M85.80 Other specified disorders of bone density and structure, unspecified site (principal); Z53.9 Procedure and treatment not carried out, unspecified reason ==

== ENCOUNTER → 2021-09-05 | Outpatient (CLI) | payer MEDICARE, MEDICAID ==
[~2021-09-05] MED LIST changes: +PERP2TAB PO; -PERP2TAB16 PO; -PERP4TA PO; +PERP4TAB31 PO
== END ==
LOC: M WUC 10:03
PROVIDERS: ATTEND Urology
DX: R97.20 Elevated prostate specific antigen [PSA] (principal)

== ENCOUNTER → 2021-09-05 | Outpatient (CLI) | payer MEDICARE, MEDICAID ==
[~2021-09-05] MED LIST changes: -PERP2TAB PO; +PERP2TAB16 PO; +PERP4TA PO; -PERP4TAB31 PO
[2021-09-05 12:59] LABS: ALBUMIN 3.5 GM/DL (3.2-5.2); BILIRUBIN,DIRECT 0.1 MG/DL (0.0-0.2); BILIRUBIN,TOTAL 0.4 MG/DL (0.2-1.0); CHOLESTEROL RISK RATIO 2.491 (<5); FREE T3 2.3 PG/ML (2.2-4.0); FREE T4 1.25 NG/DL (0.76-1.46); PROSTATIC SPECIFIC AG MONITOR 14.7 NG/ML (< 4.00); THYROID STIMULATING HORMONE 3.9 uIU/ML (0.358-3.740)
[2021-09-05 14:09] LABS: TOTAL T3 72.7 NG/DL (60.0-181.0)
== END ==
LOC: M WUC 10:00
PROVIDERS: ATTEND Family Medicine
DX: N40.0 Benign prostatic hyperplasia without lower urinary tract symptoms (principal); E07.9 Disorder of thyroid, unspecified; R94.5 Abnormal results of liver function studies; R97.20 Elevated prostate specific antigen [PSA]

== ENCOUNTER → 2021-09-06 | Outpatient (CLI) | payer MEDICARE, MEDICAID ==
[~2021-09-06] MED LIST changes: +PERP2TAB PO; -PERP2TAB16 PO; -PERP4TA PO; +PERP4TAB31 PO
== END ==
LOC: M WUC 11:39
PROVIDERS: ATTEND Urology
DX: N39.0 Urinary tract infection, site not specified (principal)

== ENCOUNTER → 2021-11-20 | Outpatient (CLI) | payer MEDICARE, MEDICAID ==
[~2021-11-20] MED LIST changes: -PERP2TAB PO; +PERP2TAB20 PO; +PERP4TAB30 PO; -PERP4TAB31 PO
== END ==
LOC: M WUC 10:02
PROVIDERS: ATTEND Family Medicine
DX: E03.8 Other specified hypothyroidism (principal)

== ENCOUNTER → 2021-12-17 | Outpatient (REF) | payer MEDICARE, MEDICAID | LOC: M WUC 15:44 | PROVIDERS: ATTEND Physician Assistant | DX: R30.0 Dysuria (principal) ==

== ENCOUNTER → 2022-07-03 | Outpatient (CLI) | payer MEDICARE, MEDICAID ==
[2022-07-03 10:23] LABS: BASO % 0.4 % (0.0-1.0); EOS # 0.1 10^3/uL (0.0-0.5); EOS % 0.9 % (0.0-3.0); HEMATOCRIT 41.2 % (42.0-52.0); HEMOGLOBIN 13.7 g/dl (13.5-17.5); LYMPH # 1.2 10^3/uL (1.5-5.0); LYMPH % 22.3 % (24.0-44.0); MEAN CORPUSCULAR HEMOGLOBIN 32.2 pg (27.0-33.0); MEAN CORPUSCULAR HGB CONC 33.3 g/dl (32.0-36.5); MEAN CORPUSCULAR VOLUME 96.9 fl (80.0-96.0); MONO # 0.6 10^3/uL (0.0-0.8); MONO % 11.1 % (2.0-8.0); NEUTROPHILS # 3.6 10^3/uL (1.5-8.5); NEUTROPHILS % 65.1 % (36.0-66.0); PLATELET COUNT, AUTOMATED 112 10^3/uL (150-450); RED BLOOD COUNT 4.25 10^6/uL (4.30-6.10); WHITE BLOOD COUNT 5.5 10^3/uL (4.0-10.0)
[2022-07-03 11:05] LABS: ALBUMIN 3.6 GM/DL (3.2-5.2); ALT/SGPT 20 U/L (12-78); BILIRUBIN,TOTAL 0.6 MG/DL (0.2-1.0); BLOOD UREA NITROGEN 17 MG/DL (7-18); CARBON DIOXIDE LEVEL 30 MEQ/L (21-32); CHLORIDE LEVEL 107 MEQ/L (98-107); CHOLESTEROL LEVEL 134 MG/DL (<200); CHOLESTEROL RISK RATIO 2.436 (<5); CREATININE FOR GFR 0.78 MG/DL (0.70-1.30); FREE T3 2.5 PG/ML (2.2-4.0); FREE T4 1.27 NG/DL (0.76-1.46); GLOMERULAR FILTRATION RATE > 60.0 (>42); GLUCOSE, FASTING 96 MG/DL (70-100); HDL CHOLESTEROL 55 MG/DL (>40); LDL CHOLESTEROL 69 MG/DL (<100); NON-HDL-C 79 MG/DL; POTASSIUM SERUM 4.1 MEQ/L (3.5-5.1); SODIUM LEVEL 140 MEQ/L (136-145); TOTAL PROTEIN 7.3 GM/DL (6.4-8.2); TRIGLYCERIDES LEVEL 52 MG/DL (<150)
[2022-07-03 13:25] LABS: TOTAL 25(OH) VITAMIN D 53.9 NG/ML (30.0-100.0)
== END ==
LOC: M WUC 08:27
PROVIDERS: ATTEND Family Medicine
DX: E03.8 Other specified hypothyroidism (principal); E55.9 Vitamin D deficiency, unspecified; N40.0 Benign prostatic hyperplasia without lower urinary tract symptoms; D64.9 Anemia, unspecified; E78.2 Mixed hyperlipidemia

== ENCOUNTER → 2023-03-16 | Outpatient (REF) | payer MEDICARE, MEDICAID | LOC: M LABWUC 17:30 | PROVIDERS: ATTEND Urology | DX: R97.20 Elevated prostate specific antigen [PSA] (principal) ==

== ENCOUNTER → 2023-06-29 | Outpatient (CLI) | payer MEDICARE, MEDICAID ==
[~2023-06-29] MED LIST changes: +ALEN70TA87 PO; -LEVO150T7; +LORA-1041 PO; +OXYB10TA23 PO
[2023-06-29 17:08] LABS: BASO % 0.6 % (0.0-1.0); EOS # 0.1 10^3/uL (0.0-0.5); EOS % 1.9 % (0.0-3.0); HEMATOCRIT 41.3 % (42.0-52.0); HEMOGLOBIN 13.9 g/dl (13.5-17.5); LYMPH # 1.3 10^3/uL (1.5-5.0); LYMPH % 20.7 % (24.0-44.0); MEAN CORPUSCULAR HEMOGLOBIN 32.9 pg (27.0-33.0); MEAN CORPUSCULAR HGB CONC 33.7 g/dl (32.0-36.5); MEAN CORPUSCULAR VOLUME 97.6 fl (80.0-96.0); MONO # 0.6 10^3/uL (0.0-0.8); MONO % 9.9 % (2.0-8.0); NEUTROPHILS # 4.1 10^3/uL (1.5-8.5); NEUTROPHILS % 66.6 % (36.0-66.0); PLATELET COUNT, AUTOMATED 127 10^3/uL (150-450); RED BLOOD COUNT 4.23 10^6/uL (4.30-6.10); WHITE BLOOD COUNT 6.2 10^3/uL (4.0-10.0)
[2023-06-29 17:21] LABS: ALBUMIN 3.5 G/DL (3.2-5.2); ALKALINE PHOSPHATASE 56 U/L (46-116); ALT/SGPT 15 U/L (7.0-40); AST/SGOT 11 U/L (<34); BILIRUBIN,TOTAL 0.3 MG/DL (0.3-1.2); BLOOD UREA NITROGEN 24 MG/DL (9-23); CALCIUM LEVEL 8.7 MG/DL (8.3-10.6); CARBON DIOXIDE LEVEL 31 MMOL/L (20-31); CHLORIDE LEVEL 105 MMOL/L (98-107); CHOLESTEROL LEVEL 122 MG/DL (<200); CREATININE FOR GFR 0.85 MG/DL (0.70-1.30); FREE T4 1.35 NG/DL (0.89-1.76); GLOMERULAR FILTRATION RATE > 60.0 (>42); GLUCOSE, FASTING 80 MG/DL (74-106); HDL CHOLESTEROL 40.6 MG/DL (>40); NON-HDL-C 81.4 MG/DL; POTASSIUM SERUM 3.8 MMOL/L (3.5-5.1); PROSTATIC SPECIFIC AG MONITOR 14.09 NG/ML (< 4.00); SODIUM LEVEL 141 MMOL/L (136-145); THYROID STIMULATING HORMONE 5.109 uIU/ML (0.55-4.78); TOTAL 25(OH) VITAMIN D 51.5 NG/ML (20.0-100.0); TOTAL PROTEIN 6.7 G/DL (5.7-8.2); TRIGLYCERIDES LEVEL 67 MG/DL (<150)
== END ==
LOC: M WUC 14:16
PROVIDERS: ATTEND Family Medicine
DX: N40.0 Benign prostatic hyperplasia without lower urinary tract symptoms (principal); E55.9 Vitamin D deficiency, unspecified; E03.8 Other specified hypothyroidism; E78.2 Mixed hyperlipidemia

== ENCOUNTER → 2023-09-16 | Outpatient (CLI) | payer MEDICARE, MEDICAID ==
[2023-09-16 13:50] LABS: BASO % 0.5 % (0.0-1.0); EOS # 0.1 10^3/uL (0.0-0.5); EOS % 2.6 % (0.0-3.0); HEMATOCRIT 41.8 % (42.0-52.0); HEMOGLOBIN 13.6 g/dl (13.5-17.5); LYMPH # 1.1 10^3/uL (1.5-5.0); LYMPH % 25.7 % (24.0-44.0); MEAN CORPUSCULAR HEMOGLOBIN 31.9 pg (27.0-33.0); MEAN CORPUSCULAR HGB CONC 32.5 g/dl (32.0-36.5); MEAN CORPUSCULAR VOLUME 98.1 fl (80.0-96.0); MONO # 0.5 10^3/uL (0.0-0.8); NEUTROPHILS # 2.5 10^3/uL (1.5-8.5); PLATELET COUNT, AUTOMATED 131 10^3/uL (150-450); RED BLOOD COUNT 4.26 10^6/uL (4.30-6.10); WHITE BLOOD COUNT 4.2 10^3/uL (4.0-10.0)
[2023-09-16 14:27] LABS: ALBUMIN 3.5 G/DL (3.2-5.2); BILIRUBIN,DIRECT 0.2 MG/DL (<0.4); BILIRUBIN,TOTAL 0.5 MG/DL (0.3-1.2); CHOLESTEROL RISK RATIO 2.86 (<5); HDL CHOLESTEROL 49.3 MG/DL (>40); LDL CHOLESTEROL 79.1 MG/DL (<100); NON-HDL-C 91.7 MG/DL; THYROID STIMULATING HORMONE 3.172 uIU/ML (0.55-4.78); TOTAL PROTEIN 6.8 G/DL (5.7-8.2)
[2023-09-16 14:29] LABS: FREE T4 1.27 NG/DL (0.89-1.76)
== END ==
LOC: M WUC 08:40
PROVIDERS: ATTEND Family Medicine
DX: E03.8 Other specified hypothyroidism (principal); E78.2 Mixed hyperlipidemia; D69.59 Other secondary thrombocytopenia

== ENCOUNTER → 2023-09-16 | Outpatient (CLI) | payer MEDICARE, MEDICAID | LOC: M WUC 08:42 | PROVIDERS: ATTEND Urology | DX: R97.20 Elevated prostate specific antigen [PSA] (principal) ==

== ENCOUNTER → 2023-10-19 | Outpatient (CLI) | payer MEDICARE, MEDICAID ==
[2023-10-19 14:49] LABS: BASO % 0.5 % (0.0-1.0); EOS % 0.9 % (0.0-3.0); HEMATOCRIT 40.9 % (42.0-52.0); HEMOGLOBIN 13.4 g/dl (13.5-17.5); LYMPH % 23.4 % (24.0-44.0); MEAN CORPUSCULAR HEMOGLOBIN 32.5 pg (27.0-33.0); MEAN CORPUSCULAR HGB CONC 32.8 g/dl (32.0-36.5); MEAN CORPUSCULAR VOLUME 99.3 fl (80.0-96.0); MONO # 0.6 10^3/uL (0.0-0.8); NEUTROPHILS # 2.7 10^3/uL (1.5-8.5); PLATELET COUNT, AUTOMATED 107 10^3/uL (150-450); RED BLOOD COUNT 4.12 10^6/uL (4.30-6.10); WHITE BLOOD COUNT 4.3 10^3/uL (4.0-10.0)
[2023-10-19 14:59] LABS: ALBUMIN 3.5 G/DL (3.2-5.2); BLOOD UREA NITROGEN 28 MG/DL (9-23); CALCIUM LEVEL 9.2 MG/DL (8.3-10.6); CARBON DIOXIDE LEVEL 32 MMOL/L (20-31); CHLORIDE LEVEL 106 MMOL/L (98-107); CREATININE FOR GFR 0.79 MG/DL (0.70-1.30); GLOMERULAR FILTRATION RATE > 60.0 (>42); GLUCOSE, FASTING 82 MG/DL (74-106); IRON (FE) 79 UG/DL (65-175); PERCENT SATURATION 29.2 % (19.7-50.0); POTASSIUM SERUM 3.9 MMOL/L (3.5-5.1); SODIUM LEVEL 141 MMOL/L (136-145); TOTAL IRON BINDING CAPACITY 271 UG/DL (250-425)
[2023-10-19 15:00] LABS: FOLATE 14.03 NG/ML (>5.4)
[2023-10-19 15:01] LABS: FERRITIN 63.8 NG/ML (10.5-307.3); THYROID STIMULATING HORMONE 2.645 uIU/ML (0.55-4.78); TOTAL 25(OH) VITAMIN D 52.2 NG/ML (20.0-100.0)
[2023-10-19 15:02] LABS: FREE T4 1.44 NG/DL (0.89-1.76); VITAMIN B12 LEVEL 419 PG/ML (211-911)
== END ==
LOC: M WUC 10:23
PROVIDERS: ATTEND Family Medicine
DX: E03.9 Hypothyroidism, unspecified (principal); D53.9 Nutritional anemia, unspecified; E83.51 Hypocalcemia; Z79.899 Other long term (current) drug therapy

== ENCOUNTER → 2023-10-19 | Outpatient (CLI) | payer MEDICARE, MEDICAID | LOC: M WUC 10:25 | PROVIDERS: ATTEND Urology | DX: R97.20 Elevated prostate specific antigen [PSA] (principal); Z53.9 Procedure and treatment not carried out, unspecified reason ==

== ENCOUNTER → 2024-01-25 | Outpatient (REF) | payer MEDICARE, MEDICAID ==
[~2024-01-25] MED LIST changes: +APAP325T4 PO; +MIRA3350 PO
[2024-01-25 18:13] LABS: FREE T4 1.17 NG/DL (0.89-1.76); THYROID STIMULATING HORMONE 3.415 uIU/ML (0.55-4.78)
== END ==
LOC: M LABWUC 16:18
PROVIDERS: ATTEND Family Medicine
DX: E03.8 Other specified hypothyroidism (principal)

== ENCOUNTER → 2024-02-29 | Outpatient (CLI) | payer MEDICARE, MEDICAID | LOC: M WUC 09:35 | PROVIDERS: ATTEND Urology | DX: R97.20 Elevated prostate specific antigen [PSA] (principal) ==

== ENCOUNTER 2024-08-08 13:19 | Day surgery (SDC) | payer MEDICARE, MEDICAID ==
[~2024-08-08] VITALS: Ht 182.9 cm; Wt 68.9 kg
[~2024-08-08 13:19] MED LIST changes: +NS 250 ML IV ONE
[2024-08-08] MEDS ORDERED: LIDOCAINE 2% 100MG/5ML SDV (FOR ANES.) As Ordered ONE (15:13)
[2024-08-08] MEDS ORDERED: propofoL 200 MG/20 ML VIAL As Ordered ONE (15:13)
[2024-08-08 15:37] VITALS: TEMP 99.5
[2024-08-08 15:51] VITALS: BP 118/71; O2SAT 95
== END 2024-08-08 16:05 | disposition home or self-care (01) ==
LOC: M OPP 13:19
PROVIDERS: ATTEND Internal Medicine Gastroenterology
DX: Z12.11 Encounter for screening for malignant neoplasm of colon (principal); K64.0 First degree hemorrhoids; Z86.0100 Personal history of colon polyps, unspecified; N40.1 Benign prostatic hyperplasia with lower urinary tract symptoms; R35.0 Frequency of micturition; E03.9 Hypothyroidism, unspecified; E78.00 Pure hypercholesterolemia, unspecified; Z79.899 Other long term (current) drug therapy; Z79.890 Hormone replacement therapy; B18.1 Chronic viral hepatitis B without delta-agent; H54.8 Legal blindness, as defined in USA; Z88.2 Allergy status to sulfonamides; Z88.1 Allergy status to other antibiotic agents

== ENCOUNTER → 2024-11-02 | Outpatient (CLI) | payer MEDICARE, MEDICAID ==
[~2024-11-02] MED LIST changes: -NS 250 ML IV ONE
[2024-11-02 15:59] LABS: BASO % 0.3 % (0.0-1.0); EOS % 0.9 % (0.0-3.0); HEMATOCRIT 41.7 % (42.0-52.0); HEMOGLOBIN 13.8 g/dl (13.5-17.5); LYMPH # 0.7 10^3/uL (1.5-5.0); LYMPH % 19.3 % (24.0-44.0); MEAN CORPUSCULAR HEMOGLOBIN 32.2 pg (27.0-33.0); MEAN CORPUSCULAR HGB CONC 33.1 g/dl (32.0-36.5); MEAN CORPUSCULAR VOLUME 97.4 fl (80.0-96.0); MONO # 0.3 10^3/uL (0.0-0.8); MONO % 7.7 % (2.0-8.0); NEUTROPHILS # 2.5 10^3/uL (1.5-8.5); NEUTROPHILS % 71.5 % (36.0-66.0); PLATELET COUNT, AUTOMATED 122 10^3/uL (150-450); RED BLOOD COUNT 4.28 10^6/uL (4.30-6.10); WHITE BLOOD COUNT 3.5 10^3/uL (4.0-10.0)
[2024-11-02 16:48] LABS: ALBUMIN 3.9 G/DL (3.2-5.2); ALKALINE PHOSPHATASE 58 U/L (40-129); ALT/SGPT 14 U/L (7.0-40); AST/SGOT 14 U/L (<34); BILIRUBIN,DIRECT 0.2 MG/DL (<0.4); BILIRUBIN,TOTAL 0.7 MG/DL (0.3-1.2); BLOOD UREA NITROGEN 20 MG/DL (9-23); CALCIUM LEVEL 9.9 MG/DL (8.3-10.6); CARBON DIOXIDE LEVEL 32 MMOL/L (20-31); CHLORIDE LEVEL 107 MMOL/L (98-107); CHOLESTEROL LEVEL 152 MG/DL (<200); CHOLESTEROL RISK RATIO 2.43 (<5); CPK CREATINE PHOSPHOKINASE 85 U/L (46-171); CREATININE FOR GFR 0.68 MG/DL (0.70-1.30); GLOMERULAR FILTRATION RATE > 60.0 (>42); GLUCOSE, FASTING 89 MG/DL (74-106); HDL CHOLESTEROL 62.4 MG/DL (>40); NON-HDL-C 89.6 MG/DL; SODIUM LEVEL 142 MMOL/L (136-145); TOTAL PROTEIN 7.4 G/DL (5.7-8.2); TRIGLYCERIDES LEVEL 48 MG/DL (<150)
[2024-11-02 16:50] LABS: FREE T4 1.83 NG/DL (0.89-1.76); THYROID STIMULATING HORMONE 2.448 uIU/ML (0.55-4.78)
[2024-11-02 16:53] LABS: FREE T3 3.4 PG/ML (2.3-4.2)
[2024-11-03 11:45] LABS: PSA SCREENING 17.46 NG/ML (< 4.00)
[2024-11-04 19:03] LABS: T P ELECTROPHORESIS SO 7.4 g/dL (6.1-8.1)
== END ==
LOC: M WUC 10:39
PROVIDERS: ATTEND Family Medicine
DX: R63.4 Abnormal weight loss (principal); Z12.5 Encounter for screening for malignant neoplasm of prostate; E78.2 Mixed hyperlipidemia; E03.8 Other specified hypothyroidism; D69.6 Thrombocytopenia, unspecified
CPT/HCPCS: 36415; 80053; 80061; 82248; 82550; 84155; 84165; 84439; 84443; 84481; 85025; G0103

== ENCOUNTER 2024-11-21 15:00 | Inpatient (IN) | payer MEDICARE, MEDICAID ==
[2024-11-21 16:50] LABS: BASO % 0.1 % (0.0-1.0); EOS % 0.4 % (0.0-3.0); HEMATOCRIT 33.6 % (42.0-52.0); HEMOGLOBIN 11.3 g/dl (13.5-17.5); LYMPH # 0.6 10^3/uL (1.5-5.0); LYMPH % 7.3 % (24.0-44.0); MEAN CORPUSCULAR HEMOGLOBIN 32.8 pg (27.0-33.0); MEAN CORPUSCULAR HGB CONC 33.6 g/dl (32.0-36.5); MEAN CORPUSCULAR VOLUME 97.7 fl (80.0-96.0); MONO # 0.9 10^3/uL (0.0-0.8); MONO % 11.1 % (2.0-8.0); NEUTROPHILS # 6.8 10^3/uL (1.5-8.5); NEUTROPHILS % 80.7 % (36.0-66.0); PLATELET COUNT, AUTOMATED 114 10^3/uL (150-450); RED BLOOD COUNT 3.44 10^6/uL (4.30-6.10); WHITE BLOOD COUNT 8.4 10^3/uL (4.0-10.0)
[2024-11-21] MEDS: LIDOCAINE 2% 5ML JELLY UROJET TOP PRN (17:16)
[2024-11-21 17:24] LABS: CREATININE FOR GFR 8.11 MG/DL (0.70-1.30); POTASSIUM SERUM 4.9 MMOL/L (3.5-5.1)
[2024-11-21] MEDS: LIDOCAINE 2% 5ML JELLY UROJET TOP ONE (17:44)
[2024-11-21 18:01] LABS: KETONE, URINE AUTO RFX NEGATIVE (NEGATIVE); MUCUS, URINE RFX SMALL (NEGATIVE); NITRITE, URINE AUTO RFX NEGATIVE (NEGATIVE); RBC, URINE AUTO RFX 34 /HPF (0-3); SQUAM EPITHELIAL CELL UR AURFX 0 /HPF (0-6); WBC, URINE AUTO RFX 6 /HPF (0-3)
[2024-11-21 18:02] LABS: LEUKOCYTE ESTERASE UR AUTO RFX TRACE (NEGATIVE)
[2024-11-21] MEDS ORDERED: IBUP200T46 PO (19:56)
[2024-11-21] MEDS ORDERED: GUAI100S51 PO (19:56)
[2024-11-21] MEDS ORDERED: ENSUMIS6 PO (19:56)
[2024-11-21] MEDS ORDERED: LEVO25TA5 PO (19:56)
[2024-11-21] MEDS ORDERED: HOME MED LIST COMPLETE! XX SCH (20:00)
[2024-11-21 20:39] LABS: C REACTIVE PROTEIN QUANTITATIV 10.28 MG/DL (<1.0)
[2024-11-21] MEDS: NS (Normal Saline) 0.9% 1,000 ML IV SCH (20:45)
[2024-11-21 20:50] LABS: ERYTHROCYTE SEDIMENTATION RATE 30 mm/hr (0-20)
[2024-11-21] MEDS ORDERED: ACETAMINOPHEN 325 MG TAB PO PRN (20:55)
[2024-11-21] MEDS ORDERED: NS (Normal Saline) 0.9% 1,000 ML IV SCH (20:55)
[2024-11-21] MEDS ORDERED: MAALOX 30 ML SUSP *UDC PO PRN (20:55)
[2024-11-21] MEDS ORDERED: MOM 30ML SUSPENSION UDC PO PRN (20:55)
[2024-11-21 21:19] LABS: INR 1.17; PARTIAL THROMBOPLASTIN TIME 26.9 SECONDS (24.8-34.2); PROTHROMBIN TIME 15.2 SECONDS (12.5-14.5)
[2024-11-21 21:35] LABS: ALBUMIN 3.1 G/DL (3.2-5.2); BILIRUBIN,DIRECT 0.2 MG/DL (<0.4); BILIRUBIN,TOTAL 0.4 MG/DL (0.3-1.2); MAGNESIUM LEVEL 2.7 MG/DL (1.8-2.4); PHOSPHORUS LEVEL 2.9 MG/DL (2.4-5.1); TOTAL PROTEIN 6.9 G/DL (5.7-8.2)
[2024-11-21] MEDS: NS 0.45% 1,000 ML IV SCH (21:45)
[2024-11-21] MEDS: DOCUSATE SODIUM 100MG CAPSULE PO SCH (21:45)
[2024-11-21 22:04] LABS: BLOOD UREA NITROGEN 109 MG/DL (9-23); CALCIUM LEVEL 9.8 MG/DL (8.3-10.6); CARBON DIOXIDE LEVEL 27 MMOL/L (20-31); CHLORIDE LEVEL 105 MMOL/L (98-107); CREATININE FOR GFR 5.34 MG/DL (0.70-1.30); GLOMERULAR FILTRATION RATE 11.3 (>42); GLUCOSE, FASTING 125 MG/DL (74-106); POTASSIUM SERUM 4.4 MMOL/L (3.5-5.1); SODIUM LEVEL 142 MMOL/L (136-145)
[2024-11-21 22:12] LABS: HEPATITIS B SURFACE ANTIBODY POSITIVE (POSITIVE)
[2024-11-21 22:23] LABS: HEPATITIS B SURFACE ANTIGEN NEGATIVE (NEGATIVE)
[2024-11-21 22:44] LABS: HEPATITIS C VIRUS ABY INDEX 0.22 INDEX (<0.8)
[2024-11-21 22:45] LABS: HEPATITIS B CORE ANTIBODY IGM NEGATIVE (NEGATIVE)
[2024-11-21 23:18] VITALS: BP 110/71; TEMP 97.3; O2SAT 96
[2024-11-22 02:44] LABS: CALCIUM LEVEL 8.8 MG/DL (8.3-10.6); CREATININE FOR GFR 2.91 MG/DL (0.70-1.30); GLOMERULAR FILTRATION RATE 22.7 (>42); POTASSIUM SERUM 4.1 MMOL/L (3.5-5.1)
[2024-11-22 04:09] VITALS: BP 119/63; TEMP 98.1; O2SAT 95
[2024-11-22 07:10] LABS: HEMATOCRIT 31.6 % (42.0-52.0); HEMOGLOBIN 10.3 g/dl (13.5-17.5); MEAN CORPUSCULAR HEMOGLOBIN 31.8 pg (27.0-33.0); MEAN CORPUSCULAR HGB CONC 32.6 g/dl (32.0-36.5); MEAN CORPUSCULAR VOLUME 97.5 fl (80.0-96.0); PLATELET COUNT, AUTOMATED 118 10^3/uL (150-450); RED BLOOD COUNT 3.24 10^6/uL (4.30-6.10); WHITE BLOOD COUNT 6.4 10^3/uL (4.0-10.0)
[2024-11-22 07:45] LABS: ALBUMIN 2.5 G/DL (3.2-5.2); BILIRUBIN,TOTAL 0.5 MG/DL (0.3-1.2); CALCIUM LEVEL 8.6 MG/DL (8.3-10.6); CREATININE FOR GFR 2.01 MG/DL (0.70-1.30); GLOMERULAR FILTRATION RATE 34.8 (>42); MAGNESIUM LEVEL 2.2 MG/DL (1.8-2.4); POTASSIUM SERUM 4.2 MMOL/L (3.5-5.1); TOTAL PROTEIN 5.8 G/DL (5.7-8.2)
[2024-11-22] MEDS: HEPARIN SOD (PORCINE) 5000UNITS/ML 1ML VIAL/SYRINGE SC SCH (08:58)
[2024-11-22 09:01] VITALS: BP 116/66; TEMP 97.5; O2SAT 96
[2024-11-22 12:00] VITALS: BP 112/63; TEMP 97.7; O2SAT 97
[2024-11-22] MEDS: D5W/0.2% SODIUM CHLORIDE 1,000 ML IV SCH (12:07)
[2024-11-22] MEDS ORDERED: MIRALAX *UNIT DOSE* 17GM PACKET PO PRN (13:50)
[2024-11-22] MEDS ORDERED: guaiFENesin SYRUP 200MG 10ML UDC PO PRN (13:50)
[2024-11-22 16:00] VITALS: BP 124/64; TEMP 97.5; O2SAT 95
[2024-11-22] MEDS: SERTRALINE 100 MG TAB PO SCH (21:09)
[2024-11-22] MEDS: PERPHENAZINE 2 MG TAB PO SCH (21:09)
[2024-11-22] MEDS: traZODone 50 MG TAB PO SCH (21:09)
[2024-11-22] MEDS: SIMVASTATIN 10 MG TAB PO SCH (21:10)
[2024-11-22 23:13] VITALS: BP 99/57; TEMP 97.5; O2SAT 96
[2024-11-23 04:19] VITALS: BP 104/53; TEMP 97.2; O2SAT 92
[2024-11-23] MEDS: LEVOTHYROXINE 12.5MCG PER 1/2 TAB (0.0125MG) PO SCH (05:09)
[2024-11-23] MEDS: LEVOTHYROXINE 150MCG TABLET (0.15MG) PO SCH (05:09)
[2024-11-23 06:00] LABS: HEMATOCRIT 30.1 % (42.0-52.0); MEAN CORPUSCULAR HEMOGLOBIN 32.6 pg (27.0-33.0); MEAN CORPUSCULAR HGB CONC 33.2 g/dl (32.0-36.5); PLATELET COUNT, AUTOMATED 122 10^3/uL (150-450); RED BLOOD COUNT 3.07 10^6/uL (4.30-6.10); WHITE BLOOD COUNT 5.5 10^3/uL (4.0-10.0)
[2024-11-23 06:18] LABS: BLOOD UREA NITROGEN 18 MG/DL (9-23); CALCIUM LEVEL 7.4 MG/DL (8.3-10.6); CARBON DIOXIDE LEVEL 31 MMOL/L (20-31); CHLORIDE LEVEL 108 MMOL/L (98-107); CREATININE FOR GFR 0.71 MG/DL (0.70-1.30); GLOMERULAR FILTRATION RATE > 60.0 (>42); GLUCOSE, FASTING 110 MG/DL (74-106); POTASSIUM SERUM 3.6 MMOL/L (3.5-5.1); SODIUM LEVEL 145 MMOL/L (136-145)
[2024-11-23] MEDS: LORATADINE 10 MG TAB PO SCH (09:09)
[2024-11-23] MEDS: PERPHENAZINE 2 MG TAB PO SCH (09:10)
[2024-11-23] MEDS: POTASSIUM CHLORIDE 10MEQ SR TABLET PO ONE (10:33)
[2024-11-23 10:50] VITALS: BP 112/69; TEMP 97.5; O2SAT 97
[2024-11-23 12:07] VITALS: BP 94/54; TEMP 97.5; O2SAT 95
[2024-11-23 13:58] VITALS: BP 108/65
== END 2024-11-23 15:45 | disposition home or self-care (01) | DRG 699 ==
LOC: M ED 15:00 → M ED INP 20:52 → M MS5PR 23:18
PROVIDERS: ADMIT Family Medicine; ATTEND Student in an Organized Health Care Education/Training Program
DX: N32.0 Bladder-neck obstruction (principal); N17.9 Acute kidney failure, unspecified; E87.0 Hyperosmolality and hypernatremia; E87.3 Alkalosis; N13.39 Other hydronephrosis; R33.9 Retention of urine, unspecified; N40.1 Benign prostatic hyperplasia with lower urinary tract symptoms; E78.5 Hyperlipidemia, unspecified; E03.9 Hypothyroidism, unspecified; F25.9 Schizoaffective disorder, unspecified; H54.8 Legal blindness, as defined in USA; D69.6 Thrombocytopenia, unspecified; R29.6 Repeated falls; F89 Unspecified disorder of psychological development; R91.8 Other nonspecific abnormal finding of lung field; M81.0 Age-related osteoporosis without current pathological fracture; K64.8 Other hemorrhoids; Z88.2 Allergy status to sulfonamides; Z88.0 Allergy status to penicillin; Z88.8 Allergy status to other drugs, medicaments and biological substances; Z79.899 Other long term (current) drug therapy; Z79.890 Hormone replacement therapy; F79 Unspecified intellectual disabilities

== ENCOUNTER 2024-12-19 17:53 | Emergency (ER) | payer MEDICARE, MEDICAID ==
[~2024-12-19] VITALS: Ht 182.9 cm; Wt 65.0 kg
[~2024-12-19 17:53] MED LIST changes: +ENSUMIS6 PO; +GUAI100S51 PO; +IBUP200T46 PO; +LEVO25TA5 PO
[2024-12-19] MEDS: LIDOCAINE 2% 5ML JELLY UROJET TOP ONE (19:50)
[2024-12-19] MEDS ORDERED: LIDOCAINE 2% 5ML JELLY UROJET TOP ONE (20:05)
[2024-12-19 21:36] LABS: KETONE, URINE AUTO RFX NEGATIVE (NEGATIVE); MUCUS, URINE RFX SMALL (NEGATIVE); RBC, URINE AUTO RFX TNTC /HPF (0-3); SQUAM EPITHELIAL CELL UR AURFX 0 /HPF (0-6)
[2024-12-19 21:38] LABS: BASO % 0.1 % (0.0-1.0); HEMOGLOBIN 12.9 g/dl (13.5-17.5); LYMPH # 0.7 10^3/uL (1.5-5.0); LYMPH % 4.5 % (24.0-44.0); MEAN CORPUSCULAR HEMOGLOBIN 32.9 pg (27.0-33.0); MEAN CORPUSCULAR HGB CONC 33.9 g/dl (32.0-36.5); MEAN CORPUSCULAR VOLUME 96.9 fl (80.0-96.0); MONO # 1.4 10^3/uL (0.0-0.8); MONO % 9.5 % (2.0-8.0); NEUTROPHILS # 12.8 10^3/uL (1.5-8.5); NEUTROPHILS % 85.4 % (36.0-66.0); PLATELET COUNT, AUTOMATED 166 10^3/uL (150-450); RED BLOOD COUNT 3.92 10^6/uL (4.30-6.10)
[2024-12-19 21:41] LABS: LEUKOCYTE ESTERASE UR AUTO RFX 3+ (NEGATIVE); NITRITE, URINE AUTO RFX POSITIVE (NEGATIVE); WBC, URINE AUTO RFX 95 /HPF (0-3)
[2024-12-19 21:46] LABS: LIPASE 21 U/L (12-53)
[2024-12-19 21:54] LABS: ALBUMIN 3.1 G/DL (3.2-5.2); ALKALINE PHOSPHATASE 53 U/L (40-129); ALT/SGPT 13 U/L (7.0-40); AST/SGOT 14 U/L (<34); BILIRUBIN,DIRECT 0.1 MG/DL (<0.4); BILIRUBIN,TOTAL 0.4 MG/DL (0.3-1.2); BLOOD UREA NITROGEN 35 MG/DL (9-23); CALCIUM LEVEL 9.4 MG/DL (8.3-10.6); CARBON DIOXIDE LEVEL 29 MMOL/L (20-31); CHLORIDE LEVEL 104 MMOL/L (98-107); CREATININE FOR GFR 0.98 MG/DL (0.70-1.30); GLOMERULAR FILTRATION RATE > 60.0 (>42); GLUCOSE, FASTING 143 MG/DL (74-106); POTASSIUM SERUM 4.3 MMOL/L (3.5-5.1); SODIUM LEVEL 140 MMOL/L (136-145)
[2024-12-19] MEDS: NS (Normal Saline) 0.9% 1,000 ML IV ONE (23:15)
[2024-12-19] MEDS: LevoFLOXacin IV 750 MG in IV 1 EA IV ONE (23:19)
[2024-12-19] MEDS: ACETAMINOPHEN 325 MG TAB PO ONE (23:40)
[2024-12-20] MEDS ORDERED: LEVO1TAB40 PO (00:18)
[2024-12-20 01:38] VITALS: O2SAT 97
[2024-12-20 01:45] VITALS: BP 135/73
[2024-12-20 02:03] VITALS: TEMP 100.1
== END 2024-12-20 02:08 | disposition home or self-care (01) ==
LOC: M ED 17:53
DX: N39.0 Urinary tract infection, site not specified (principal); R65.10 Systemic inflammatory response syndrome (SIRS) of non-infectious origin without acute organ dysfunction; E78.00 Pure hypercholesterolemia, unspecified; N42.9 Disorder of prostate, unspecified; E03.9 Hypothyroidism, unspecified; Z86.19 Personal history of other infectious and parasitic diseases; M81.0 Age-related osteoporosis without current pathological fracture; F41.9 Anxiety disorder, unspecified; F32.A Depression, unspecified; F20.9 Schizophrenia, unspecified; F63.81 Intermittent explosive disorder; J30.1 Allergic rhinitis due to pollen; J30.89 Other allergic rhinitis; Z79.899 Other long term (current) drug therapy; Z88.0 Allergy status to penicillin; Z88.2 Allergy status to sulfonamides
CPT/HCPCS: 51703; 80048; 80076; 81001; 83605; 83690; 85025; 87040; 87077; 87088; 87154; 87186; 96365; 96366; 99285; J1956

== ENCOUNTER → 2025-01-04 | Outpatient (REF) | payer MEDICARE, MEDICAID ==
[~2025-01-04] MED LIST changes: +LEVO1TAB40 PO
[2025-01-04 18:50] LABS: BASO % 0.4 % (0.0-1.0); EOS # 0.1 10^3/uL (0.0-0.5); HEMATOCRIT 40.1 % (42.0-52.0); HEMOGLOBIN 12.7 g/dl (13.5-17.5); LYMPH # 1.1 10^3/uL (1.5-5.0); LYMPH % 16.7 % (24.0-44.0); MEAN CORPUSCULAR HEMOGLOBIN 32.3 pg (27.0-33.0); MEAN CORPUSCULAR HGB CONC 31.7 g/dl (32.0-36.5); MONO # 0.9 10^3/uL (0.0-0.8); MONO % 13.3 % (2.0-8.0); NEUTROPHILS # 4.6 10^3/uL (1.5-8.5); NEUTROPHILS % 68.3 % (36.0-66.0); PLATELET COUNT, AUTOMATED 217 10^3/uL (150-450); RED BLOOD COUNT 3.93 10^6/uL (4.30-6.10); WHITE BLOOD COUNT 6.7 10^3/uL (4.0-10.0)
[2025-01-04 18:58] LABS: ERYTHROCYTE SEDIMENTATION RATE 42 mm/hr (0-20)
[2025-01-04 19:23] LABS: C REACTIVE PROTEIN QUANTITATIV 1.06 MG/DL (<1.0)
[2025-01-04 19:24] LABS: CALCIUM LEVEL 9.1 MG/DL (8.3-10.6); CREATININE FOR GFR 0.91 MG/DL (0.70-1.30); POTASSIUM SERUM 4.4 MMOL/L (3.5-5.1)
== END ==
LOC: M SFHCADAM 14:06
PROVIDERS: ATTEND Physician Assistant
DX: N39.0 Urinary tract infection, site not specified (principal); T83.511A Infection and inflammatory reaction due to indwelling urethral catheter, initial encounter; R78.81 Bacteremia; N40.1 Benign prostatic hyperplasia with lower urinary tract symptoms

== ENCOUNTER → 2025-01-06 | Outpatient (REF) | payer MEDICARE, MEDICAID ==
[2025-01-06 15:54] LABS: APPEARANCE, URINE CLOUDY (CLEAR); BACTERIA, URINE AUTO 2+ (NEGATIVE); BILIRUBIN, URINE AUTO NEGATIVE (NEGATIVE); BLOOD, URINE BLOOD 3+ (NEGATIVE); COLOR, URINE AMBER (YELLOW); GLUCOSE, URINE (UA) AUTO NEGATIVE (NEGATIVE); KETONE, URINE AUTO NEGATIVE (NEGATIVE); LEUKOCYTE ESTERASE, URINE AUTO 2+ (NEGATIVE); MUCUS, URINE SMALL (NEGATIVE); NITRITE, URINE AUTO POSITIVE (NEGATIVE); PROTEIN, URINE AUTO 2+ mg/dL (NEGATIVE); RBC, URINE AUTO TNTC /HPF (0-3); SPECIFIC GRAVITY URINE AUTO 1.016 (1.002-1.035); SQUAMOUS EPITHELIAL CELL UR AU 0 /HPF (0-6); UROBILINOGEN, URINE AUTO 0.2 mg/dL (0.0-2.0); WBC, URINE AUTO TNTC /HPF (0-3)
== END ==
LOC: M SMT 15:03
PROVIDERS: ATTEND Nurse Practitioner Family
DX: R33.9 Retention of urine, unspecified (principal)

== ENCOUNTER 2025-04-08 18:16 | Emergency (ER) | payer MEDICARE, MEDICAID ==
[~2025-04-08] VITALS: Ht 188 cm; Wt 65.0 kg
[~2025-04-08 18:16] MED LIST changes: -FLOM0.4C39 PO; +MAGN400T35 PO; +POTA-298 PO; +TAMS-18 PO; +TAMS1CAP17 PO
[2025-04-08] MEDS: LIDOCAINE 2% 5 ML JELLY UROJET TOP ONE (22:25)
[2025-04-08 22:52] LABS: KETONE, URINE AUTO RFX NEGATIVE (NEGATIVE); NITRITE, URINE AUTO RFX NEGATIVE (NEGATIVE); RBC, URINE AUTO RFX 39 /HPF (0-3); SQUAM EPITHELIAL CELL UR AURFX 0 /HPF (0-6)
[2025-04-08 23:03] LABS: LEUKOCYTE ESTERASE UR AUTO RFX 3+ (NEGATIVE); WBC, URINE AUTO RFX TNTC /HPF (0-3)
[2025-04-09] MEDS ORDERED: CIPR-249 PO (00:35)
[2025-04-09 00:46] VITALS: BP 127/58; TEMP 98.2; O2SAT 98
[2025-04-09] MEDS: CIPROFLOXACIN 500 MG TABLET PO ONE (00:53)
== END 2025-04-09 00:48 | disposition home or self-care (01) ==
LOC: M ED 18:16
DX: T83.091A Other mechanical complication of indwelling urethral catheter, initial encounter (principal); N39.0 Urinary tract infection, site not specified; N40.0 Benign prostatic hyperplasia without lower urinary tract symptoms; E78.5 Hyperlipidemia, unspecified; J30.89 Other allergic rhinitis; Z86.73 Personal history of transient ischemic attack (TIA), and cerebral infarction without residual deficits; Z79.899 Other long term (current) drug therapy; Z88.2 Allergy status to sulfonamides; Z88.0 Allergy status to penicillin

== ENCOUNTER 2025-04-11 09:44 | Inpatient (IN) | payer MEDICARE, MEDICAID ==
[~2025-04-11] VITALS: Ht 188 cm; Wt 63.2 kg
[~2025-04-11 09:44] MED LIST changes: +CIPR-249 PO
[2025-04-11 11:21] LABS: BASO # 0.0 10^3/uL (0.0-0.2); BASO % 0.3 % (0.0-1.0); EOS # 0.0 10^3/uL (0.0-0.5); EOS % 0.2 % (0.0-3.0); LYMPH # 0.5 10^3/uL (1.5-5.0); LYMPH % 7.6 % (24.0-44.0); MONO # 0.4 10^3/uL (0.0-0.8); MONO % 7.3 % (2.0-8.0); NEUTROPHILS # 5.0 10^3/uL (1.5-8.5); NEUTROPHILS % 84.1 % (36.0-66.0); PLATELET COUNT, AUTOMATED 115 10^3/uL (150-450)
[2025-04-11 11:48] LABS: ALT/SGPT 14.0 U/L (7.0-40); AST/SGOT 14.0 U/L (<34); CALCIUM LEVEL 9.1 MG/DL (8.3-10.6); CARBON DIOXIDE LEVEL 28.0 MMOL/L (20-31); CHLORIDE LEVEL 102.0 MMOL/L (98-107); CREATININE FOR GFR 1.02 MG/DL (0.70-1.30); GLOMERULAR FILTRATION RATE 77.1 (>42); POTASSIUM SERUM 3.9 MMOL/L (3.5-5.1); SODIUM LEVEL 142.0 MMOL/L (136-145)
[2025-04-11 12:19] LABS: INR 1.11
[2025-04-11] MEDS: LIDOCAINE 2% 5 ML JELLY UROJET TOP ONE (12:35)
[2025-04-11] MEDS ORDERED: CIPR-249 PO (12:44)
[2025-04-11] MEDS ORDERED: MURI6.5D AU (12:44)
[2025-04-11] MEDS ORDERED: LEVO150T7 PO (12:44)
[2025-04-11] MEDS ORDERED: TRIPOIN9 TOP (12:44)
[2025-04-11] MEDS ORDERED: HOME MED LIST COMPLETE! XX SCH (12:45)
[2025-04-11 13:42] LABS: APPEARANCE, URINE MANUAL TURBID (CLEAR); COLOR, URINE MANUAL RED (YELLOW)
[2025-04-11 13:43] LABS: PH,URINE MAN OBSCURED UNITS (5.0 - 7.0)
[2025-04-11 13:44] LABS: BILIRUBIN, URINE MANUAL OBSCURED (NEGATIVE); BLOOD URINE MANUAL POSITIVE (NEGATIVE); GLUCOSE, URINE (UA) MANUAL OBSCURED mg/dL (NEGATIVE); KETONE, URINE MANUAL OBSCURED mg/dL (NEGATIVE); LEUKOCYTE ESTERASE, URINE MAN OBSCURED (NEGATIVE); NITRITE, URINE MANUAL OBSCURED (NEGATIVE); PROTEIN, URINE MANUAL OBSCURED mg/dL (NEGATIVE); SPECIFIC GRAVITY,URINE MANUAL 1.010 (1.002-1.035); UROBILINOGEN, URINE MANUAL OBSCURED mg/dl (NORMAL)
[2025-04-11 13:50] LABS: BACTERIA, URINE NONE SEEN; HYALINE CAST, URINE NONE SEEN /lpf (0-1); RBC, URINE TNTC /hpf (0-3); SQUAMOUS EPITHELIAL CELL URINE NONE SEEN /hpf (SMALL AMT)
[2025-04-11] MEDS ORDERED: guaiFENesin SYRUP 200 MG/10 ML UDC PO PRN (15:35)
[2025-04-11] MEDS: CIPROFLOXACIN 500 MG TABLET PO SCH (17:39)
[2025-04-11 20:40] VITALS: BP 146/79; TEMP 98.8; O2SAT 97
[2025-04-11] MEDS: TAMSULOSIN 0.4 MG CAP PO SCH (21:33)
[2025-04-11] MEDS: traZODone 25MG PER 1/2 TABLET PO SCH (21:33)
[2025-04-11] MEDS: FINASTERIDE 5 MG TAB PO SCH (21:33)
[2025-04-11] MEDS: SIMVASTATIN 10 MG TAB PO SCH (21:34)
[2025-04-11] MEDS: SERTRALINE 100 MG TAB PO SCH (21:35)
[2025-04-11] MEDS: CARBAMIDE PEROXIDE 6.5% OTIC SOLN 15 ML AU SCH (23:11)
[2025-04-11] MEDS: PERPHENAZINE 2 MG TAB PO SCH (23:11)
[2025-04-12 03:35] VITALS: BP 101/60; TEMP 98.1; O2SAT 97
[2025-04-12] MEDS: LEVOTHYROXINE PO SCH (05:56)
[2025-04-12] MEDS: LEVOTHYROXINE 150 MCG TABLET (0.15 MG) PO SCH (05:56)
[2025-04-12 06:44] LABS: PLATELET COUNT, AUTOMATED 95 10^3/uL (150-450)
[2025-04-12 07:04] LABS: CALCIUM LEVEL 8.3 MG/DL (8.3-10.6); CARBON DIOXIDE LEVEL 30.0 MMOL/L (20-31); CHLORIDE LEVEL 106.0 MMOL/L (98-107); CREATININE FOR GFR 0.89 MG/DL (0.70-1.30); GLOMERULAR FILTRATION RATE 89.9 (>42); POTASSIUM SERUM 4.0 MMOL/L (3.5-5.1); SODIUM LEVEL 144.0 MMOL/L (136-145)
[2025-04-12] MEDS: LORATADINE 10 MG TAB PO SCH (08:18)
[2025-04-12] MEDS: PERPHENAZINE 2 MG TAB PO SCH (10:18)
[2025-04-12 12:00] VITALS: BP 110/60; TEMP 98.1; O2SAT 100
[2025-04-12 17:23] LABS: PLATELET COUNT, AUTOMATED 108 10^3/uL (150-450)
[2025-04-12 20:09] VITALS: BP 125/75; TEMP 99.5; O2SAT 98
[2025-04-13 04:46] VITALS: BP 106/71; TEMP 99.1; O2SAT 96
[2025-04-13 06:41] LABS: PLATELET COUNT, AUTOMATED 103 10^3/uL (150-450)
[2025-04-13 07:13] LABS: IRON (FE) 63.0 UG/DL (65-175); PERCENT SATURATION 28.8 % (19.7-50.0)
[2025-04-13 07:36] LABS: CALCIUM LEVEL 7.9 MG/DL (8.3-10.6); CARBON DIOXIDE LEVEL 29.0 MMOL/L (20-31); CHLORIDE LEVEL 107.0 MMOL/L (98-107); CREATININE FOR GFR 0.96 MG/DL (0.70-1.30); GLOMERULAR FILTRATION RATE 82.9 (>42); PHOSPHORUS LEVEL 3.8 MG/DL (2.4-5.1); POTASSIUM SERUM 4.1 MMOL/L (3.5-5.1); SODIUM LEVEL 144.0 MMOL/L (136-145)
[2025-04-13 12:00] VITALS: BP 120/67; TEMP 98.4; O2SAT 94
[2025-04-13 20:26] VITALS: BP 135/82; TEMP 99.1; O2SAT 97
[2025-04-14] VITALS (8 sets, daily range): BP systolic 80–107; BP diastolic 40–68; TEMP 98.8–102; O2SAT 94–96
[2025-04-14 06:02] LABS: BASO # 0.0 10^3/uL (0.0-0.2); BASO % 0.4 % (0.0-1.0); EOS # 0.1 10^3/uL (0.0-0.5); EOS % 1.0 % (0.0-3.0); LYMPH # 0.9 10^3/uL (1.5-5.0); LYMPH % 16.6 % (24.0-44.0); MONO # 0.6 10^3/uL (0.0-0.8); MONO % 11.5 % (2.0-8.0); NEUTROPHILS # 3.7 10^3/uL (1.5-8.5); NEUTROPHILS % 69.7 % (36.0-66.0); PLATELET COUNT, AUTOMATED 103 10^3/uL (150-450)
[2025-04-14 06:33] LABS: ALT/SGPT 16.0 U/L (7.0-40); AST/SGOT 14.0 U/L (<34); CALCIUM LEVEL 8.0 MG/DL (8.3-10.6); CARBON DIOXIDE LEVEL 28.0 MMOL/L (20-31); CHLORIDE LEVEL 103.0 MMOL/L (98-107); CREATININE FOR GFR 1.06 MG/DL (0.70-1.30); GLOMERULAR FILTRATION RATE 73.6 (>42); POTASSIUM SERUM 4.0 MMOL/L (3.5-5.1); SODIUM LEVEL 143.0 MMOL/L (136-145)
[2025-04-14] MEDS ORDERED: FERROUS GLUCONATE 324 MG TAB PO SCH (09:00)
[2025-04-14] MEDS: FERROUS SULFATE 325 MG TAB PO SCH (09:59)
[2025-04-14] MEDS: ACETAMINOPHEN 325 MG TAB PO PRN (16:32)
[2025-04-14] MEDS ORDERED: ISOVUE-370 76% 100 ML VIAL As Ordered ONE (21:15)
[2025-04-14 21:36] LABS: KETONE, URINE AUTO RFX NEGATIVE (NEGATIVE); MUCUS, URINE RFX SMALL (NEGATIVE); NITRITE, URINE AUTO RFX NEGATIVE (NEGATIVE); RBC, URINE AUTO RFX 8 /HPF (0-3); SQUAM EPITHELIAL CELL UR AURFX 0 /HPF (0-6)
[2025-04-14 21:37] LABS: LEUKOCYTE ESTERASE UR AUTO RFX 3+ (NEGATIVE); WBC, URINE AUTO RFX 24 /HPF (0-3)
[2025-04-14] MEDS: LR 1,000 ML IV SCH (21:44)
[2025-04-14] MEDS: VANCOMYCIN HCL 1,250 MG, VIAL MATE ADAPTER 1 EACH in NS 250 ML IV ONE (22:12)
[2025-04-14 22:16] LABS: BASO # 0.0 10^3/uL (0.0-0.2); BASO % 0.2 % (0.0-1.0); EOS # 0.0 10^3/uL (0.0-0.5); EOS % 0.4 % (0.0-3.0); LYMPH # 0.8 10^3/uL (1.5-5.0); LYMPH % 15.4 % (24.0-44.0); MONO # 0.7 10^3/uL (0.0-0.8); MONO % 12.7 % (2.0-8.0); NEUTROPHILS # 3.7 10^3/uL (1.5-8.5); NEUTROPHILS % 70.9 % (36.0-66.0); PLATELET COUNT, AUTOMATED 105 10^3/uL (150-450)
[2025-04-14 22:40] LABS: CALCIUM LEVEL 7.2 MG/DL (8.3-10.6); CARBON DIOXIDE LEVEL 28.0 MMOL/L (20-31); CHLORIDE LEVEL 101.0 MMOL/L (98-107); CREATININE FOR GFR 1.12 MG/DL (0.70-1.30); GLOMERULAR FILTRATION RATE 68.9 (>42); POTASSIUM SERUM 3.6 MMOL/L (3.5-5.1); SODIUM LEVEL 137.0 MMOL/L (136-145)
[2025-04-15] VITALS (19 sets, daily range): BP systolic 78–137; BP diastolic 40–72; TEMP 98.5–101.5; O2SAT 96–99
[2025-04-15] MEDS: PIPERACILLIN/TAZOBACTAM SOD 4.5 GM in DEXTROSE 5% (D5W) ADV/MINI-BAG 50 ML IV SCH (00:53)
[2025-04-15] MEDS: REMDESIVIR 200 MG in NS 250 ML IV ONE (02:43)
[2025-04-15] MEDS: VANCOMYCIN HCL 1,000 MG, VIAL MATE ADAPTER 1 EACH in NS 250 ML IV SCH (06:00)
[2025-04-15 06:03] LABS: BASO # 0.0 10^3/uL (0.0-0.2); BASO % 0.4 % (0.0-1.0); EOS # 0.0 10^3/uL (0.0-0.5); EOS % 0.6 % (0.0-3.0); LYMPH # 0.8 10^3/uL (1.5-5.0); LYMPH % 15.5 % (24.0-44.0); MONO # 0.8 10^3/uL (0.0-0.8); MONO % 14.5 % (2.0-8.0); NEUTROPHILS # 3.5 10^3/uL (1.5-8.5); NEUTROPHILS % 68.6 % (36.0-66.0)
[2025-04-15 06:06] LABS: PLATELET COUNT, AUTOMATED 98 10^3/uL (150-450)
[2025-04-15] MEDS: LR 1,000 ML IV ONE (06:13)
[2025-04-15 06:21] LABS: CALCIUM LEVEL 7.7 MG/DL (8.3-10.6); CARBON DIOXIDE LEVEL 28.0 MMOL/L (20-31); CHLORIDE LEVEL 106.0 MMOL/L (98-107); CREATININE FOR GFR 1.09 MG/DL (0.70-1.30); GLOMERULAR FILTRATION RATE 71.2 (>42); POTASSIUM SERUM 4.0 MMOL/L (3.5-5.1); SODIUM LEVEL 144.0 MMOL/L (136-145)
[2025-04-15] MEDS: MIDODRINE 5 MG TAB PO SCH (06:27)
[2025-04-15] MEDS ORDERED: LR 1,000 ML IV ONE (08:00)
[2025-04-15] MEDS: VANCOMYCIN HCL 750 MG, VIAL MATE ADAPTER 1 EACH in NS 250 ML IV SCH (18:31)
[2025-04-15] MEDS ORDERED: INSULIN IV RATE CHANGE DOCUMENTATION ML/HR XX SCH (19:50)
[2025-04-15] MEDS ORDERED: INSULIN REGULAR IN 0.9 % NACL 100 UNIT in IV 1 EA IV SCH (20:00)
[2025-04-15] MEDS: MIRALAX *UNIT DOSE* 17 GM PACKET PO SCH (20:54)
[2025-04-15] MEDS: DOCUSATE SODIUM 100 MG CAPSULE PO SCH (20:55)
[2025-04-16] VITALS (9 sets, daily range): BP systolic 91–129; BP diastolic 50–59; TEMP 98.1–99.6; O2SAT 95–98
[2025-04-16 08:29] LABS: BASO # 0.0 10^3/uL (0.0-0.2); BASO % 0.2 % (0.0-1.0); EOS # 0.1 10^3/uL (0.0-0.5); EOS % 1.9 % (0.0-3.0); LYMPH # 0.9 10^3/uL (1.5-5.0); LYMPH % 22.2 % (24.0-44.0); MONO # 0.7 10^3/uL (0.0-0.8); MONO % 16.0 % (2.0-8.0); NEUTROPHILS # 2.5 10^3/uL (1.5-8.5); NEUTROPHILS % 59.5 % (36.0-66.0); PLATELET COUNT, AUTOMATED 108 10^3/uL (150-450)
[2025-04-16 08:53] LABS: VANCOMYCIN RANDOM 8.2 UG/ML
[2025-04-16 08:54] LABS: CALCIUM LEVEL 7.5 MG/DL (8.3-10.6); CARBON DIOXIDE LEVEL 30.0 MMOL/L (20-31); CHLORIDE LEVEL 108.0 MMOL/L (98-107); CREATININE FOR GFR 1.0 MG/DL (0.70-1.30); GLOMERULAR FILTRATION RATE 79.0 (>42); POTASSIUM SERUM 4.1 MMOL/L (3.5-5.1); SODIUM LEVEL 145.0 MMOL/L (136-145)
[2025-04-16] MEDS: VANCOMYCIN HCL 750 MG, VIAL MATE ADAPTER 1 EACH in NS 250 ML IV SCH (09:54)
[2025-04-16] MEDS: HEPARIN SOD 5000 UNITS/ML 1 ML VIAL/SYRINGE SQ SCH (14:28)
[2025-04-17 00:20] VITALS: BP 104/59; TEMP 97.8; O2SAT 99
[2025-04-17 05:05] VITALS: BP 106/55; TEMP 98.4; O2SAT 98
[2025-04-17 07:24] LABS: BASO # 0.0 10^3/uL (0.0-0.2); BASO % 0.6 % (0.0-1.0); EOS # 0.1 10^3/uL (0.0-0.5); EOS % 4.0 % (0.0-3.0); LYMPH # 1.3 10^3/uL (1.5-5.0); LYMPH % 36.1 % (24.0-44.0); MONO # 0.4 10^3/uL (0.0-0.8); MONO % 12.5 % (2.0-8.0); NEUTROPHILS # 1.7 10^3/uL (1.5-8.5); NEUTROPHILS % 46.8 % (36.0-66.0); PLATELET COUNT, AUTOMATED 106 10^3/uL (150-450)
[2025-04-17 07:39] VITALS: BP 106/68; TEMP 98.6; O2SAT 97
[2025-04-17 08:08] LABS: CALCIUM LEVEL 7.6 MG/DL (8.3-10.6); CARBON DIOXIDE LEVEL 30.0 MMOL/L (20-31); CHLORIDE LEVEL 108.0 MMOL/L (98-107); CREATININE FOR GFR 1.07 MG/DL (0.70-1.30); GLOMERULAR FILTRATION RATE 72.8 (>42); POTASSIUM SERUM 4.4 MMOL/L (3.5-5.1); SODIUM LEVEL 146.0 MMOL/L (136-145)
[2025-04-17 12:33] VITALS: BP 124/57; TEMP 98.2; O2SAT 98
[2025-04-17 20:00] VITALS: BP 116/58; TEMP 98.6; O2SAT 96
[2025-04-18 04:36] VITALS: BP 129/73; TEMP 98.1; O2SAT 98
[2025-04-18 05:22] LABS: CALCIUM LEVEL 7.7 MG/DL (8.3-10.6); CARBON DIOXIDE LEVEL 28.0 MMOL/L (20-31); CHLORIDE LEVEL 108.0 MMOL/L (98-107); CREATININE FOR GFR 1.04 MG/DL (0.70-1.30); GLOMERULAR FILTRATION RATE 75.4 (>42); POTASSIUM SERUM 4.1 MMOL/L (3.5-5.1); SODIUM LEVEL 146.0 MMOL/L (136-145)
[2025-04-18 08:00] VITALS: BP 132/66; TEMP 98.2; O2SAT 99
[2025-04-18] MEDS: D5W 1,000 ML IV ONE (09:17)
[2025-04-18 11:29] VITALS: BP 120/69; TEMP 97.8; O2SAT 98
[2025-04-18 11:39] VITALS: BP 120/69
[2025-04-18] MEDS ORDERED: MIRA3350 PO (13:58)
[2025-04-18] MEDS ORDERED: COLA100C5 PO (13:58)
[2025-04-19] MEDS ORDERED: CVS13CRE TOP (12:43)
[2025-04-19] MEDS ORDERED: PERP4TAB30 PO (12:43)
[2025-04-19] MEDS ORDERED: CALC1TAB63 PO (12:43)
[2025-04-19] MEDS ORDERED: FUROSEMIDE 100 MG/10 ML VIAL As Ordered ONE (18:24)
== END 2025-04-18 14:49 | disposition home or self-care (01) | DRG 698 ==
LOC: M ED 09:44 → M ED INP 09:45 → M MSPAV 20:41 → OBSVTOIN 04-13 15:45 → M ICU 04-15 06:48
PROVIDERS: ADMIT Family Medicine; ATTEND Student in an Organized Health Care Education/Training Program
PROC: 30233N1 Transfusion of Nonautologous Red Blood Cells into Peripheral Vein, Percutaneous Approach (ICD-10-PCS; principal; 2025-04-15)
PROC: XW033E5 Introduction of Remdesivir Anti-infective into Peripheral Vein, Percutaneous Approach, New Technology Group 5 (ICD-10-PCS; 2025-04-15)
DX: T83.511A Infection and inflammatory reaction due to indwelling urethral catheter, initial encounter (principal); U07.1 COVID-19; A41.9 Sepsis, unspecified organism; D62 Acute posthemorrhagic anemia; N40.1 Benign prostatic hyperplasia with lower urinary tract symptoms; F71 Moderate intellectual disabilities; I10 Essential (primary) hypertension; E03.9 Hypothyroidism, unspecified; F25.0 Schizoaffective disorder, bipolar type; F31.9 Bipolar disorder, unspecified; M81.0 Age-related osteoporosis without current pathological fracture; E78.5 Hyperlipidemia, unspecified; K59.00 Constipation, unspecified; N32.0 Bladder-neck obstruction; N30.91 Cystitis, unspecified with hematuria; N28.1 Cyst of kidney, acquired; H54.8 Legal blindness, as defined in USA; Z79.890 Hormone replacement therapy; Z79.899 Other long term (current) drug therapy; Z88.1 Allergy status to other antibiotic agents; Z88.2 Allergy status to sulfonamides

== ENCOUNTER 2025-04-19 10:08 | Observation (INO) | payer MEDICARE, MEDICAID ==
[~2025-04-19 10:08] MED LIST changes: +COLA100C5 PO; +MURI6.5D AU; +TRIPOIN9 TOP
[2025-04-19 10:52] LABS: BASO # 0.0 10^3/uL (0.0-0.2); BASO % 0.4 % (0.0-1.0); EOS # 0.1 10^3/uL (0.0-0.5); EOS % 0.9 % (0.0-3.0); LYMPH # 0.9 10^3/uL (1.5-5.0); LYMPH % 15.4 % (24.0-44.0); MONO # 0.4 10^3/uL (0.0-0.8); MONO % 6.6 % (2.0-8.0); NEUTROPHILS # 4.3 10^3/uL (1.5-8.5); NEUTROPHILS % 76.3 % (36.0-66.0); PLATELET COUNT, AUTOMATED 154 10^3/uL (150-450)
[2025-04-19 11:05] LABS: INR 1.18
[2025-04-19 11:17] LABS: CALCIUM LEVEL 8.6 MG/DL (8.3-10.6); CARBON DIOXIDE LEVEL 26.0 MMOL/L (20-31); CHLORIDE LEVEL 107.0 MMOL/L (98-107); CREATININE FOR GFR 0.98 MG/DL (0.70-1.30); GLOMERULAR FILTRATION RATE 80.9 (>42); POTASSIUM SERUM 4.5 MMOL/L (3.5-5.1); SODIUM LEVEL 147.0 MMOL/L (136-145)
[2025-04-19] MEDS ORDERED: PERP4TAB30 PO (12:43)
[2025-04-19] MEDS ORDERED: CALC1TAB63 PO (12:43)
[2025-04-19] MEDS ORDERED: CVS13CRE TOP (12:43)
[2025-04-19] MEDS ORDERED: HOME MED LIST COMPLETE! XX SCH (12:45)
[2025-04-19] MEDS: LIDOCAINE 2% 5 ML JELLY UROJET TOP ONE (14:32)
[2025-04-19 14:43] LABS: BASO # 0.0 10^3/uL (0.0-0.2); BASO % 0.3 % (0.0-1.0); EOS # 0.0 10^3/uL (0.0-0.5); EOS % 0.2 % (0.0-3.0); LYMPH # 0.9 10^3/uL (1.5-5.0); LYMPH % 13.4 % (24.0-44.0); MONO # 0.3 10^3/uL (0.0-0.8); MONO % 5.1 % (2.0-8.0); NEUTROPHILS # 5.2 10^3/uL (1.5-8.5); NEUTROPHILS % 80.5 % (36.0-66.0); PLATELET COUNT, AUTOMATED 155 10^3/uL (150-450)
[2025-04-19 14:54] LABS: KETONE, URINE AUTO RFX NEGATIVE (NEGATIVE); LEUKOCYTE ESTERASE UR AUTO RFX NEGATIVE (NEGATIVE); NITRITE, URINE AUTO RFX NEGATIVE (NEGATIVE); RBC, URINE AUTO RFX TNTC /HPF (0-3); SQUAM EPITHELIAL CELL UR AURFX 0 /HPF (0-6); WBC, URINE AUTO RFX 0 /HPF (0-3)
[2025-04-19] MEDS: NS (Normal Saline) 0.9% 1,000 ML IV ONE (15:10)
[2025-04-19 15:18] LABS: ALT/SGPT 18.0 U/L (7.0-40); AST/SGOT 20.0 U/L (<34)
[2025-04-19] MEDS: LevoFLOXacin 500 MG/100 ML IV BAG As Ordered ONE (16:16)
[2025-04-19] MEDS ORDERED: ROCURONIUM BROMIDE 50MG/5ML VIAL As Ordered ONE (16:18)
[2025-04-19] MEDS ORDERED: LIDOCAINE 2% 100 MG/5 ML SDV (FOR ANES.) As Ordered ONE (16:29)
[2025-04-19] MEDS: LevoFLOXacin IV 500 MG in IV 1 EA IV ONE (16:30)
[2025-04-19] MEDS ORDERED: ACETAMINOPHEN 1000MG/100ML IV BAG As Ordered ONE (16:44)
[2025-04-19] MEDS ORDERED: PHENYLephrine 500MCG 5ML (100MCG/ML) SYRINGE As Ordered ONE (16:44)
[2025-04-19] MEDS ORDERED: ONDANSETRON 4MG 2ML VIAL As Ordered ONE (16:50)
[2025-04-19] MEDS ORDERED: SUGAMMADEX SODIUM 200 MG/2 ML VIAL As Ordered ONE (16:50)
[2025-04-19] MEDS ORDERED: dexAMETHasone 4 MG/ML 1 ML VIAL As Ordered ONE (16:50)
[2025-04-19] MEDS ORDERED: ONDANSETRON 4MG 2ML VIAL IV PRN (18:35)
[2025-04-19] MEDS: LR 1,000 ML IV SCH (18:35)
[2025-04-19] MEDS ORDERED: HYDROMORPHONE HCL 0.5 MG/0.5 ML SYRINGE IV PRN (18:35)
[2025-04-19] MEDS: NS 0.45% 1,000 ML IV SCH (19:48)
[2025-04-19 19:50] VITALS: BP 116/81; TEMP 97.9; O2SAT 95
[2025-04-19 20:20] VITALS: BP 114/81; TEMP 97.9; O2SAT 95
[2025-04-19 20:50] VITALS: BP 110/80; TEMP 98; O2SAT 97
[2025-04-19] MEDS: traZODone 25MG PER 1/2 TABLET PO SCH (21:38)
[2025-04-19] MEDS: SERTRALINE 100 MG TAB PO SCH (21:38)
[2025-04-19] MEDS: FINASTERIDE 5 MG TAB PO SCH (21:39)
[2025-04-19] MEDS: TAMSULOSIN 0.4 MG CAP PO SCH (21:39)
[2025-04-19] MEDS: SIMVASTATIN 10 MG TAB PO SCH (21:40)
[2025-04-19 21:49] VITALS: BP 111/75; TEMP 97.5; O2SAT 95
[2025-04-19] MEDS: PERPHENAZINE 2 MG TAB PO SCH (22:22)
[2025-04-19 22:50] VITALS: BP_SYST 112; BP_DIAS 69; BP_DIAS 73; TEMP 97.9; TEMP 98; O2SAT 95; O2SAT 96
[2025-04-19 23:50] VITALS: BP 109/70; TEMP 98; O2SAT 94
[2025-04-20] VITALS (8 sets, daily range): BP systolic 110–119; BP diastolic 64–77; TEMP 97.7–98.4; O2SAT 96–100
[2025-04-20] MEDS: LEVOTHYROXINE PO SCH (06:40)
[2025-04-20] MEDS: LEVOTHYROXINE 150 MCG TABLET (0.15 MG) PO SCH (06:40)
[2025-04-20 07:24] LABS: PLATELET COUNT, AUTOMATED 137 10^3/uL (150-450)
[2025-04-20 07:53] LABS: CALCIUM LEVEL 7.2 MG/DL (8.3-10.6); CARBON DIOXIDE LEVEL 24.0 MMOL/L (20-31); CHLORIDE LEVEL 109.0 MMOL/L (98-107); CREATININE FOR GFR 0.89 MG/DL (0.70-1.30); GLOMERULAR FILTRATION RATE 89.9 (>42); POTASSIUM SERUM 4.2 MMOL/L (3.5-5.1); SODIUM LEVEL 142.0 MMOL/L (136-145)
[2025-04-20] MEDS: LORATADINE 10 MG TAB PO SCH (08:58)
[2025-04-20] MEDS: PERPHENAZINE 2 MG TAB PO SCH (08:59)
[2025-04-20] MEDS ORDERED: CIPR250T3 PO (11:12)
[2025-04-20] MEDS ORDERED: MED REC COMMENT (20:10)
== END 2025-04-20 12:37 | disposition home or self-care (01) ==
LOC: M ED 10:08 → EDBD 10:08 → M ED INP 10:09 → M MSPAV 19:40
PROVIDERS: ADMIT Internal Medicine; ATTEND Internal Medicine
DX: R31.0 Gross hematuria (principal); N40.1 Benign prostatic hyperplasia with lower urinary tract symptoms; Z46.82 Encounter for fitting and adjustment of non-vascular catheter; R33.8 Other retention of urine; F79 Unspecified intellectual disabilities; E03.9 Hypothyroidism, unspecified; E78.5 Hyperlipidemia, unspecified; F39 Unspecified mood [affective] disorder; M81.0 Age-related osteoporosis without current pathological fracture; J30.2 Other seasonal allergic rhinitis; Z79.899 Other long term (current) drug therapy; Z88.2 Allergy status to sulfonamides; Z88.0 Allergy status to penicillin
CPT/HCPCS: 36415; 36430; 51702; 52001; 52601; 80048; 80076; 81001; 83605; 83735; 84145; 85014; 85018; 85025; 85027; 85610; 85730; 86850; 86900; 86901; 86920; 87040; 93005; 93041; 96374; 99285; A4215; C1769; G0378; J0131; J1100; J1956; J2371; J2405; J3010; P9016

== ENCOUNTER 2025-04-20 17:47 | Observation (INO) | payer MEDICARE, MEDICAID ==
[~2025-04-20] VITALS: Ht 190.5 cm; Wt 62.6 kg
[2025-04-20] VITALS (8 sets, daily range): BP systolic 105–122; BP diastolic 58–74; TEMP 96.5–98.5; O2SAT 95–100
[~2025-04-20 17:47] MED LIST changes: +CALC1TAB63 PO; +CIPR250T3 PO; +CVS13CRE TOP
[2025-04-20 18:51] LABS: BASO # 0.0 10^3/uL (0.0-0.2); BASO % 0.2 % (0.0-1.0); EOS # 0.0 10^3/uL (0.0-0.5); EOS % 0.1 % (0.0-3.0); LYMPH # 1.3 10^3/uL (1.5-5.0); LYMPH % 12.3 % (24.0-44.0); MONO # 0.9 10^3/uL (0.0-0.8); MONO % 8.7 % (2.0-8.0); NEUTROPHILS # 8.4 10^3/uL (1.5-8.5); NEUTROPHILS % 78.1 % (36.0-66.0); PLATELET COUNT, AUTOMATED 164 10^3/uL (150-450)
[2025-04-20 19:01] LABS: INR 1.11
[2025-04-20 19:19] LABS: CALCIUM LEVEL 7.3 MG/DL (8.3-10.6); CARBON DIOXIDE LEVEL 26.0 MMOL/L (20-31); CHLORIDE LEVEL 106.0 MMOL/L (98-107); CREATININE FOR GFR 1.02 MG/DL (0.70-1.30); GLOMERULAR FILTRATION RATE 77.1 (>42); POTASSIUM SERUM 4.0 MMOL/L (3.5-5.1); SODIUM LEVEL 142.0 MMOL/L (136-145)
[2025-04-20] MEDS ORDERED: MED REC COMMENT (20:10)
[2025-04-20] MEDS ORDERED: HOME MED LIST COMPLETE! XX SCH (20:10)
[2025-04-20] MEDS ORDERED: ACETAMINOPHEN 325 MG TAB PO PRN (22:50)
[2025-04-21 00:26] VITALS: BP 117/64; TEMP 97; O2SAT 99
[2025-04-21] MEDS: LEVOTHYROXINE 150 MCG TABLET (0.15 MG) PO SCH (06:39)
[2025-04-21] MEDS: LEVOTHYROXINE PO SCH (06:39)
[2025-04-21 07:18] LABS: BASO # 0.0 10^3/uL (0.0-0.2); BASO % 0.4 % (0.0-1.0); EOS # 0.0 10^3/uL (0.0-0.5); EOS % 0.5 % (0.0-3.0); LYMPH # 1.3 10^3/uL (1.5-5.0); LYMPH % 18.2 % (24.0-44.0); MONO # 0.6 10^3/uL (0.0-0.8); MONO % 8.5 % (2.0-8.0); NEUTROPHILS # 5.3 10^3/uL (1.5-8.5); NEUTROPHILS % 71.3 % (36.0-66.0); PLATELET COUNT, AUTOMATED 132 10^3/uL (150-450)
[2025-04-21 07:54] LABS: CALCIUM LEVEL 7.4 MG/DL (8.3-10.6); CARBON DIOXIDE LEVEL 28.0 MMOL/L (20-31); CHLORIDE LEVEL 110.0 MMOL/L (98-107); CREATININE FOR GFR 0.94 MG/DL (0.70-1.30); GLOMERULAR FILTRATION RATE 85.1 (>42); MAGNESIUM LEVEL 2.0 MG/DL (1.8-2.4); POTASSIUM SERUM 3.8 MMOL/L (3.5-5.1); SODIUM LEVEL 145.0 MMOL/L (136-145)
[2025-04-21 08:00] VITALS: BP 123/76; TEMP 98.2; O2SAT 96
[2025-04-21] MEDS ORDERED: CIPROFLOXACIN 250 MG TAB PO SCH (09:00)
[2025-04-21] MEDS ORDERED: PERPHENAZINE 2 MG TAB PO SCH ×2 (09:00→21:00)
[2025-04-21] MEDS ORDERED: SIMVASTATIN 10 MG TAB PO SCH (21:00)
[2025-04-21] MEDS ORDERED: traZODone 25MG PER 1/2 TABLET PO SCH (21:00)
[2025-04-21] MEDS ORDERED: SERTRALINE 100 MG TAB PO SCH (21:00)
== END 2025-04-21 12:40 | disposition home or self-care (01) ==
LOC: M ED 17:47 → M ED INP 17:48
PROVIDERS: ADMIT Internal Medicine; ATTEND Internal Medicine
DX: N99.820 Postprocedural hemorrhage of a genitourinary system organ or structure following a genitourinary system procedure (principal); N40.0 Benign prostatic hyperplasia without lower urinary tract symptoms; F79 Unspecified intellectual disabilities; E03.9 Hypothyroidism, unspecified; E78.5 Hyperlipidemia, unspecified; M81.0 Age-related osteoporosis without current pathological fracture; F39 Unspecified mood [affective] disorder; Z79.899 Other long term (current) drug therapy

== ENCOUNTER → 2025-04-27 | Outpatient (REF) | payer MEDICARE, MEDICAID ==
[~2025-04-27] MED LIST changes: +MED REC COMMENT
[2025-04-27 13:27] LABS: PLATELET COUNT, AUTOMATED 196 10^3/uL (150-450)
[2025-04-27 14:12] LABS: CALCIUM LEVEL 8.7 MG/DL (8.3-10.6); CARBON DIOXIDE LEVEL 30.0 MMOL/L (20-31); CHLORIDE LEVEL 106.0 MMOL/L (98-107); CREATININE FOR GFR 0.98 MG/DL (0.70-1.30); GLOMERULAR FILTRATION RATE 80.9 (>42); POTASSIUM SERUM 4.2 MMOL/L (3.5-5.1); SODIUM LEVEL 146.0 MMOL/L (136-145)
== END ==
LOC: M SFHCADAM 11:04
PROVIDERS: ATTEND Physician Assistant
DX: E83.51 Hypocalcemia (principal); R31.9 Hematuria, unspecified